=== PATIENT | female | born 1955 | race African-American/Black ===

== ENCOUNTER 2016-08-18 21:57 | Inpatient (IN) | payer SELFPAY ==
[~2016-08-18] VITALS: Ht 172.7 cm; Wt 69.1 kg
[~2016-08-18 21:57] MED LIST: METH40TA9 PO; PROM1SUP12 PR
[2016-08-18 22:21] VITALS: BP 231/110; PULSE 92; RESP 20; TEMP 97.2; O2SAT 98
--- NOTE | 2016-08-18 22:29 | PD ---
HPI Chief Complaint: Abdominal Pain Time Seen by Provider: 22:18 Travel History International Travel<30 days: No Contact w/Intl Traveler<30days: No Traveled to known affect area: No History of Present Illness HPI 60-year-old female with history of hypertension and tobacco use who presents via EMS for evaluation of chest pain, headache, nausea, vomiting. Symptoms started this morning. She describes the headache as generalized pressure. The chest pain is substernal, sharp, worse with inspiration. She endorses nausea and vomiting throughout the day as well. Denies abdominal pain, fevers or chills, flank pain, diarrhea, shortness of breath, cough or congestion. Denies known personal history of coronary artery disease however she has no outpatient follow-up. She is on no medications to help control her blood pressure. She denies any drug or alcohol use. No known history of AAA. No recent travel, recent surgery, history of PE or DVT, lower extremity edema. She received 4 mg of Zofran via EMS with minimal improvement in her nausea. She has no other complaints. 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 She does have some active vomiting. She is hypertensive. SKIN: Warm and dry. HEAD: Atraumatic. Normocephalic. EYES: Pupils equal and round. No scleral icterus. No injection or drainage. ENT: No nasal bleeding or discharge. Mucous membranes pink and moist. NECK: Trachea midline. No JVD. CARDIOVASCULAR: Regular rate and rhythm. No murmur appreciated. RESPIRATORY: No accessory muscle use. Clear to auscultation. Breath sounds equal bilaterally. No crackles no wheezing or rhonchi GASTROINTESTINAL: Abdomen soft, non-tender, nondistended. Hepatic and splenic margins not palpable. MUSCULOSKELETAL: No obvious deformities. No clubbing. No cyanosis. No edema. NEUROLOGICAL: Awake and alert. No obvious cranial nerve deficits. Motor grossly within normal limits. Normal speech. PSYCHIATRIC: Appropriate mood and affect; insight and judgment normal. Data Data Last Documented VS Vital Signs Date Time Temp Pulse Resp B/P Pulse Ox O2 Delivery O2 Flow Rate FiO2 08/19/16 04:30 82 18 194/88 95 Nasal Cannula 2 08/18/16 22:21 97.2 Orders Electrocardiogram (08/18/16 22:25) Ckmb (Isoenzyme) Profile (08/18/16 22:25) Complete Blood Count With Diff (08/18/16 22:25) Magnesium (Mg) (08/18/16 22:25) Prothrombin Time / Inr (Pt) (08/18/16 22:25) Act Partial Throm Time (Ptt) (08/18/16 22:25) Troponin I (08/18/16 22:25) Chest, Single Ap (08/18/16 22:25) Ecg Monitoring (08/18/16 22:25) Bilateral Bp Monitoring (08/18/16 22:25) Iv Access Insert/Monitor (08/18/16 22:25) Oximetry (08/18/16 22:25) Oxygen Administration (08/18/16 22:25) Sodium Chloride 0.9% Flush (Ns Flush) (08/18/16 22:30) Morphine Inj (Morphine Inj) (08/18/16 22:30) Nitroglycerin Sl (Nitrostat Sl) (08/18/16 22:30) Ct Brain W/O Iv Contrast(Rout) (08/18/16 ) Ondansetron Inj (Zofran Inj) (08/18/16 22:30) Comprehensive Metabolic Panel (08/18/16 22:25) Lipase (08/18/16 22:25) Labetalol Inj (Trandate Inj) (08/18/16 22:30) Hydromorphone Pf Inj (Dilaudid Pf Inj) (08/19/16 00:00) Cta Thor Abd Aorta W Iv C W3d (08/19/16 22:43) Iohexol 350 Inj (Omnipaque 350 Inj) (08/19/16 04:11) Clonidine (Catapres) (08/19/16 05:15) Nitroglycerin-Dextrose Inj (Nitroglyceri (08/19/16 05:15) Admit Order (Ed Use Only) (08/19/16 05:17) Metoprolol Tartrate Inj (Lopressor Inj) (08/19/16 05:15) Ciprofloxacin 400 Mg Premix (Cipro 400 M (08/19/16 06:00) Metronidazole 500 Mg Inj (Flagyl 500 Mg (08/19/16 06:00) Pantoprazole Inj (Protonix Inj) (08/19/16 05:30) Pantoprazole Inj (Protonix Inj) (08/20/16 21:00) Labs Laboratory Tests Test 08/18/16 22:35 White Blood Count 10.1 TH/MM3 Red Blood Count 6.10 MIL/MM3 Hemoglobin 14.3 GM/DL Hematocrit 43.5 % Mean Corpuscular Volume 71.3 FL Mean Corpuscular Hemoglobin 23.4 PG Mean Corpuscular Hemoglobin 32.8 % Concent Red Cell Distribution Width 16.0 % Platelet Count 316 TH/MM3 Mean Platelet Volume 8.1 FL Neutrophils (%) (Auto) 85.0 % Lymphocytes (%) (Auto) 10.8 % Monocytes (%) (Auto) 3.8 % Eosinophils (%) (Auto) 0.0 % Basophils (%) (Auto) 0.4 % Neutrophils # (Auto) 8.6 TH/MM3 Lymphocytes # (Auto) 1.1 TH/MM3 Monocytes # (Auto) 0.4 TH/MM3 Eosinophils # (Auto) 0.0 TH/MM3 Basophils # (Auto) 0.0 TH/MM3 CBC Comment DIFF FINAL Differential Comment Prothrombin Time 10.0 SEC Prothromb Time International 0.9 RATIO Ratio Activated Partial 23.1 SEC Thromboplast Time Sodium Level 141 MEQ/L Potassium Level 3.5 MEQ/L Chloride Level 107 MEQ/L Carbon Dioxide Level 20.3 MEQ/L Anion Gap 14 MEQ/L Blood Urea Nitrogen 12 MG/DL Creatinine 0.61 MG/DL Estimat Glomerular Filtration 121 ML/MIN Rate Random Glucose 120 MG/DL Calcium Level 9.1 MG/DL Magnesium Level 1.8 MG/DL Total Bilirubin 0.3 MG/DL Aspartate Amino Transf 27 U/L (AST/SGOT) Alanine Aminotransferase 30 U/L (ALT/SGPT) Alkaline Phosphatase 109 U/L Total Creatine Kinase 81 U/L Troponin I 0.04 NG/ML Total Protein 8.0 GM/DL Albumin 3.9 GM/DL Lipase 127 U/L MDM Medical Decision Making Medical Screen Exam Complete: Yes Emergency Medical Condition: Yes Medical Record Reviewed: Yes Interpretation(s) EKG sinus rhythm with first-degree AV block, VT interval 235, no acute T wave inversions or ST depression/elevation Differential Diagnosis Hypertensive emergency, acute coronary syndrome, aortic dissection, pulmonary embolism, renal failure, gastroenteritis, intracranial hemorrhage Narrative Course 60-year-old female with known history of hypertension and tobacco use presents with a one-day history of substernal sharp chest pain that is worse with inspiration, nausea and vomiting, headache. On initial examination she is quite hypertensive with systolic reading in the mid 200s. Plan is for basic lab work, 12-lead EKG, ECG monitoring pulse oximetry. CT of the brain, CT angiogram to assess for dissection, chest x-ray have been ordered. She'll be given nitroglycerin, morphine and labetalol as well as additional Zofran. 2300: At the end of my shift this patient was signed out pending lab work, imaging studies. Procedures EKG Prior to Arrival: Yes Robert Deshpande August 18, 2016 22:29
[2016-08-18] MEDS ORDERED: MORPHINE SULFATE 4 MG/ML INJ IV PUSH ONE (22:30)
[2016-08-18] MEDS ORDERED: SODIUM CHLORIDE 0.9% FLUSH 10 ML FLUSH IVF PRN (22:30)
[2016-08-18] MEDS ORDERED: ONDANSETRON HCL 4 MG/2 ML VIAL IV PUSH ONE (22:30)
[2016-08-18] MEDS ORDERED: LABETALOL HCL 100 MG/20 ML VIAL IV PUSH ONE (22:30)
[2016-08-18] MEDS: NITROGLYCERIN 0.4 MG SL 25 TABS/BTL SL SCH ×3 (22:35→22:46)
[2016-08-18 22:49] VITALS: BP_SYST 235; BP_SYST 245; BP_DIAS 110; BP_DIAS 112; PULSE 88; RESP 20; O2SAT 98
[2016-08-18 22:59] LABS: AUTOMATED NEUTROPHIL # 8.6 TH/MM3 (1.8-7.7); BASOPHIL % 0.4 % (0.0-2.0); HEMATOCRIT 43.5 % (35.0-46.0); HEMO FLAGS DIFF FINAL; LYMPH % 10.8 % (9.0-44.0); LYMPHOCYTE # 1.1 TH/MM3 (1.0-4.8); MEAN CELL VOLUME 71.3 FL (80.0-100.0); MEAN CORPUSCULAR HEMOGLOBIN 23.4 PG (27.0-34.0); MEAN CORPUSCULAR HGB CONC 32.8 % (32.0-36.0); MONO % 3.8 % (0.0-8.0); PLATELET COUNT 316 TH/MM3 (150-450); WHITE BLOOD COUNT 10.1 TH/MM3 (4.0-11.0)
--- NOTE | 2016-08-18 23:01 | RADRPT ---
EXAM DATE/TIME: 08/18/2016 22:36 [facility] COMPARISON: No previous studies available for comparison. INDICATIONS : Upper abd pain, vomiting, headache and htn MEDICAL HISTORY : Heart murmur SURGICAL HISTORY : None. ENCOUNTER: Initial ACUITY: 1 day PAIN SCORE: 7/10 LOCATION: Bilateral abdomen FINDINGS: There is mild hazy infiltrate in the left lung base, probably lingular. Right lung reasonably clear. No effusion seen. No pneumothorax. Heart size within normal limits. CONCLUSION: Early or mild left base pneumonia suspected. Sly Cage MD on August 18, 2016 at 22:59 Board Certified Radiologist. This report was verified electronically.
[2016-08-18 23:19] LABS: APTT (PATIENT) 23.1 SEC (24.3-30.1); INTERNATIONAL NORMALIZED RATIO 0.9 RATIO
[2016-08-18 23:22] LABS: ANION GAP 14 MEQ/L (5-15); AST (GOT) 27 U/L (15-37); BICARBONATE 20.3 MEQ/L (21.0-32.0); BLOOD UREA NITROGEN 12 MG/DL (7-18); CHLORIDE 107 MEQ/L (98-107); GLOMERULAR FILTRATION RATE 121 ML/MIN (>89); MAGNESIUM 1.8 MG/DL (1.5-2.5); POTASSIUM 3.5 MEQ/L (3.5-5.1); SODIUM (NA) 141 MEQ/L (136-145)
[2016-08-18 23:27] LABS: ALKALINE PHOSPHATASE 109 U/L (45-117); ALT (GPT) 30 U/L (10-53); TOTAL BILIRUBIN ADULT 0.3 MG/DL (0.2-1.0)
[2016-08-18 23:29] LABS: CREATINE KINASE 81 U/L (26-192)
[2016-08-18 23:36] VITALS: BP 196/96; PULSE 98; RESP 20; O2SAT 98
[2016-08-19] VITALS (20 sets, daily range): BP systolic 89–231; BP diastolic 53–121; PULSE 72–106; RESP 16–20; TEMP 98.3–98.7; O2SAT 95–100
[2016-08-19] MEDS ORDERED: HYDROmorphone HCL PF 1 MG/ML VIAL IV PUSH ONE
--- NOTE | 2016-08-19 00:14 | RADRPT ---
EXAM DATE/TIME: 08/19/2016 00:01 [facility] COMPARISON: No previous studies available for comparison. INDICATIONS : Cephalgia. RADIATION DOSE: 56.35 CTDIvol (mGy) MEDICAL HISTORY : None SURGICAL HISTORY : None. ENCOUNTER: Initial ACUITY: 1 day PAIN SCALE: 5/10 LOCATION: cranial TECHNIQUE: Multiple contiguous axial images were obtained of the head. Using automated exposure control and adj ustment of the mA and/or kV according to patient size, radiation dose was kept as low as reasonably a chievable to obtain optimal diagnostic quality images. FINDINGS: CEREBRUM: The ventricles are normal for age. No evidence of midline shift, mass lesion, hemorrhage or acute in farction. No extra-axial fluid collections are seen. POSTERIOR FOSSA: The cerebellum and brainstem are intact. The 4th ventricle is midline. The cerebellopontine angle i s unremarkable. EXTRACRANIAL: The visualized portion of the orbits is intact. SKULL: The calvaria is intact. No evidence of skull fracture. CONCLUSION: Normal examination. Henrry Ho MD on August 19, 2016 at 0:10 Board Certified Radiologist. This report was verified electronically.
[2016-08-19] MEDS ORDERED: IOHEXOL 350 MG/ML 10 ML VIAL (for RAD DIAG) IV ONE (04:11)
--- NOTE | 2016-08-19 05:04 | RADRPT ---
EXAM DATE/TIME: 08/19/2016 00:05 [facility] COMPARISON: No previous studies available for comparison. INDICATIONS : Abdominal pain. IV CONTRAST: 100 cc Omnipaque 350 (iohexol) IV RADIATION DOSE: 5.54 CTDIvol (mGy) MEDICAL HISTORY : Heart murmur SURGICAL HISTORY : None. ENCOUNTER: Initial ACUITY: 1 day PAIN SCALE: 8/10 LOCATION: abdomen TECHNIQUE: Volumetric scanning was performed using a multi-row detector CT scanner. The data was post processed with a variety of visualization algorithms including full volume maximum intensity projection, multi -planar sliding thin slab reformation, curved planar reformation, and surface rendering techniques. Using automated exposure control and adjustment of the mA and/or kV according to patient size, radiat ion dose was kept as low as reasonably achievable to obtain optimal diagnostic quality images. FINDINGS: LUNGS: There is no consolidation or pneumothorax. No concerning pulmonary nodule is visualized. No pleural fluid is present. MEDIASTINUM: No abnormally enlarged lymph nodes by CT criteria. No axillary or hilar abnormalities are identified. ABDOMEN: The liver and spleen are free of focal defects. The gallbladder and pancreas demonstrate no abnormali ty. The adrenal glands are normal. The kidneys demonstrate no evidence of solid renal mass or hydrone phrosis. No free fluid or abdominal masses are identified. No para-aortic adenopathy is seen. Mild mu ral thickening of the colon. PELVIS: No evidence of free fluid or pelvic mass. No abnormally enlarged inguinal or retroperitoneal lymph no laura are present. The bladder is unremarkable. THORACIC AORTA: The thoracic aortic root is normal with normal branching of the great vessels. There is no evidence of aneurysm or dissection. ABDOMINAL AORTA: The aorta is normal in caliber without aneurysm or dissection. The renal arteries are patent bilater ally. The proximal celiac and superior mesenteric arteries are patent and normal in diameter. PELVIC VESSELS: The internal iliac and external iliac vessels are patent without aneurysm or stenosis. CONCLUSION: 1. Negative CTA of the aorta, except for mild atherosclerotic disease. Specifically no aneurysm or di ssection. Small hiatal hernia. 2. There is some mild mural thickening of the colon with minimal pericolonic fat stranding near the s plenic flexure are most characteristic of a mild colitis. Henrry Ho MD on August 19, 2016 at 4:54 Board Certified Radiologist. This report was verified electronically.
[2016-08-19] MEDS ORDERED: cloNIDine HCL 0.2 MG TAB PO ONE (05:15)
[2016-08-19] MEDS ORDERED: METOPROLOL TARTRATE 5 MG/5 ML VIAL IV PUSH ONE (05:15)
--- NOTE | 2016-08-19 05:22 | PD ---
Physical Exam Date Seen by Provider: August 18, 2016 Time Seen by Provider: 23:00 Narrative I, Dr. Freitas, have reviewed the advance practice practitioner's documentation and am in agreement, met with the patient face to face, made the diagnosis, and the medical decision making was done by me. *My assessment and Findings: Patient seen and evaluated with PA, please see PA no further details. Awaiting workup for substernal and epigastric abdominal pains, elevated blood pressures. EKG shows NSR, no ST elevation or depression, and no arrhythmias. No significant T-wave inversions. Laboratory Tests Test 08/18/16 22:35 Red Blood Count 6.10 MIL/MM3 (4.00-5.30) Mean Corpuscular Volume 71.3 FL (80.0-100.0) Mean Corpuscular Hemoglobin 23.4 PG (27.0-34.0) Neutrophils (%) (Auto) 85.0 % (16.0-70.0) Neutrophils # (Auto) 8.6 TH/MM3 (1.8-7.7) Activated Partial 23.1 SEC Thromboplast Time (24.3-30.1) Carbon Dioxide Level 20.3 MEQ/L (21.0-32.0) Random Glucose 120 MG/DL (74-106) Last 24 hours Impressions Aorta CTA 08/19/16 2243 Signed Impressions: Service Date/Time: Friday, August 19, 2016 00:05 - CONCLUSION: 1. Negative CTA of the aorta, except for mild atherosclerotic disease. Specifically no aneurysm or dissection. Small hiatal hernia. 2. There is some mild mural thickening of the colon with minimal pericolonic fat stranding near the splenic flexure are most characteristic of a mild colitis. Henrry Ho MD Chest X-Ray 08/18/16 2225 Signed Impressions: Service Date/Time: Thursday, August 18, 2016 22:36 - CONCLUSION: Early or mild left base pneumonia suspected. Sly Cage MD Head CT 08/18/16 0000 Signed Impressions: Service Date/Time: Friday, August 19, 2016 00:01 - CONCLUSION: Normal examination. Henrry Ho MD CT of the brain did not reveal any signs of acute processes. Lab work did not show significant metabolic issues. Her EKG did not show any signs of acute ST- T elevations. She has a negative troponin. She was given labetalol, nitroglycerin glycerin, pain medications in the ER. She states that she has had a similar episode and had been admitted to another facility, and had to be given multiple pain medication in order to help with blood pressure. She states that some of the blood pressure issues is mediated by pain. She was given several doses of pain medications as well but without significant blood pressure improvements. At this point, my plan would be to admit her for hypertensive urgency for further treatment. Case was discussed with Dr. Drew for admission. Data Data Last Documented VS Vital Signs Date Time Temp Pulse Resp B/P Pulse Ox O2 Delivery O2 Flow Rate FiO2 08/19/16 00:30 20 08/18/16 23:36 98 196/96 98 Room Air 08/18/16 22:21 97.2 Orders Electrocardiogram (08/18/16 22:25) Ckmb (Isoenzyme) Profile (08/18/16 22:25) Complete Blood Count With Diff (08/18/16 22:25) Magnesium (Mg) (08/18/16 22:25) Prothrombin Time / Inr (Pt) (08/18/16 22:25) Act Partial Throm Time (Ptt) (08/18/16 22:25) Troponin I (08/18/16 22:25) Chest, Single Ap (08/18/16 22:25) Ecg Monitoring (08/18/16 22:25) Bilateral Bp Monitoring (08/18/16 22:25) Iv Access Insert/Monitor (08/18/16 22:25) Oximetry (08/18/16 22:25) Oxygen Administration (08/18/16 22:25) Sodium Chloride 0.9% Flush (Ns Flush) (08/18/16 22:30) Morphine Inj (Morphine Inj) (08/18/16 22:30) Nitroglycerin Sl (Nitrostat Sl) (08/18/16 22:30) Ct Brain W/O Iv Contrast(Rout) (08/18/16 ) Ondansetron Inj (Zofran Inj) (08/18/16 22:30) Comprehensive Metabolic Panel (08/18/16 22:25) Lipase (08/18/16 22:25) Labetalol Inj (Trandate Inj) (08/18/16 22:30) Hydromorphone Pf Inj (Dilaudid Pf Inj) (08/19/16 00:00) Cta Thor Abd Aorta W Iv C W3d (08/19/16 22:43) Iohexol 350 Inj (Omnipaque 350 Inj) (08/19/16 04:11) Clonidine (Catapres) (08/19/16 05:15) Nitroglycerin-Dextrose Inj (Nitroglyceri (08/19/16 05:15) Admit Order (Ed Use Only) (08/19/16 05:17) Metoprolol Tartrate Inj (Lopressor Inj) (08/19/16 05:15) Labs Laboratory Tests Test 08/18/16 22:35 White Blood Count 10.1 TH/MM3 Red Blood Count 6.10 MIL/MM3 Hemoglobin 14.3 GM/DL Hematocrit 43.5 % Mean Corpuscular Volume 71.3 FL Mean Corpuscular Hemoglobin 23.4 PG Mean Corpuscular Hemoglobin 32.8 % Concent Red Cell Distribution Width 16.0 % Platelet Count 316 TH/MM3 Mean Platelet Volume 8.1 FL Neutrophils (%) (Auto) 85.0 % Lymphocytes (%) (Auto) 10.8 % Monocytes (%) (Auto) 3.8 % Eosinophils (%) (Auto) 0.0 % Basophils (%) (Auto) 0.4 % Neutrophils # (Auto) 8.6 TH/MM3 Lymphocytes # (Auto) 1.1 TH/MM3 Monocytes # (Auto) 0.4 TH/MM3 Eosinophils # (Auto) 0.0 TH/MM3 Basophils # (Auto) 0.0 TH/MM3 CBC Comment DIFF FINAL Differential Comment Prothrombin Time 10.0 SEC Prothromb Time International 0.9 RATIO Ratio Activated Partial 23.1 SEC Thromboplast Time Sodium Level 141 MEQ/L Potassium Level 3.5 MEQ/L Chloride Level 107 MEQ/L Carbon Dioxide Level 20.3 MEQ/L Anion Gap 14 MEQ/L Blood Urea Nitrogen 12 MG/DL Creatinine 0.61 MG/DL Estimat Glomerular Filtration 121 ML/MIN Rate Random Glucose 120 MG/DL Calcium Level 9.1 MG/DL Magnesium Level 1.8 MG/DL Total Bilirubin 0.3 MG/DL Aspartate Amino Transf 27 U/L (AST/SGOT) Alanine Aminotransferase 30 U/L (ALT/SGPT) Alkaline Phosphatase 109 U/L Total Creatine Kinase 81 U/L Troponin I 0.04 NG/ML Total Protein 8.0 GM/DL Albumin 3.9 GM/DL Lipase 127 U/L MDM Medical Record Reviewed: Yes Supervised Visit with DAVID: Yes Differential Diagnosis Hypertensive urgency versus hypertensive urgency versus ACS versus AAA versus aortic dissection Diagnosis Primary Impression: Hypertensive urgency Admitting Information Admitting Physician Requests: Joey Bianchi MD August 19, 2016 05:22
[2016-08-19] MEDS: CIPROFLOXACIN 400 MG PREMIX 200 ML IV SCH ×2 (05:26→09:12)
[2016-08-19] MEDS ORDERED: SODIUM CHLORIDE 0.9% FLUSH 10 ML FLUSH IV FLUSH PRN (05:30)
[2016-08-19] MEDS ORDERED: BISACODYL 10 MG SUPP RECTAL PRN (05:30)
[2016-08-19] MEDS ORDERED: PANTOPRAZOLE SODIUM 40 MG VIAL IV PUSH ONE (05:30)
--- NOTE | 2016-08-19 05:39 | HHI.HP ---
[facility] Service [facility] Primary Care Physician No Primary Care Physician Admission Diagnosis hypertensive urgency Diagnoses: (1) Hypertensive urgency Diagnosis: Principal (2) Intractable nausea and vomiting Diagnosis: Principal (3) Colitis Diagnosis: Principal (4) Chest pain Diagnosis: Principal (5) Non-compliance Diagnosis: Principal (6) Substance abuse Diagnosis: Principal (7) Tobacco abuse Diagnosis: Principal Travel History International Travel<30 Days: No Contact w/Intl Traveler <30 Da: No Traveled to Known Affected Are: No History of Present Illness This is a 60-year-old female with a PMH of HTN, Noncompliance, h/o Substance Abuse and Tobacco Abuse who was brought here by EMS secondary to complaints of chest pain, abdominal pain, headache and nausea/vomiting started yesterday morning. Denies fever, chills or sick contacts. No c/o SOB. On arrival, BP 231/110, HR 92, O2 sat 98% on RA, Afebrile. S/p Labetalol 20mg IV in ER w/ repeat BP 196/96, HR 98. Given analgesics/antiemetics w/ some improvement in pain complaints. CBC essentially unremarkable. Chemistry unremarkable. Troponin 0.04. INR 0.9. CT Head normal. CXR with early or mild base pneumonia. CTA Aorta negative, mild mural thickening of colon suggestive of mild colitis. While in ER, BP remains 190's w/ persistent nausea/vomiting. Pt reports non-compliance w/ BP medications. Review of Systems Except as stated in HPI: all other systems reviewed are Neg ROS: 14 point review of systems otherwise negative. Past Family Social History Past Medical History PMH: HTN, Noncompliance, h/o Substance Abuse and Tobacco Abuse Past Surgical History PAST SURGICAL HISTORY: None Allergies: Coded Allergies: No Known Allergies (Verified , 08/18/16) Family History PAST FAMILY HISTORY: Reviewed. No h/o DM or CAD Social History PAST SOCIAL HISTORY: Occasional alcohol. Smokes 1ppd. H/o Substance Abuse, currently on Methadone. Physical Exam Vital Signs Vital Signs Date Time Temp Pulse Resp B/P Pulse Ox O2 Delivery O2 Flow Rate FiO2 08/19/16 00:30 20 5/19/17 23:36 98 20 196/96 98 Room Air 08/18/16 23:23 20 08/18/16 22:49 88 20 235/110 98 Room Air 245/112 08/18/16 22:49 20 08/18/16 22:48 Room Air 08/18/16 22:21 97.2 92 20 231/110 98 Physical Exam PE: GENERAL: Middle-aged black female in no acute distress. HEENT: PERRLA, EOMI. No scleral icterus or conjunctival pallor. No lid lag or facial droop. CARDIOVASCULAR: Regular rate and rhythm. No obvious murmurs to auscultation. No chest tenderness to palpation. RESPIRATORY: No obvious rhonchi or wheezing. Clear to auscultation. Breath sounds equal bilaterally. GASTROINTESTINAL: Abdomen soft, mild generalized tenderness to palpation, nondistended. BS normal. MUSCULOSKELETAL: Extremities without clubbing, cyanosis, or edema. No obvious deformities. NEUROLOGICAL: Awake, alert and oriented x4. No focal neurologic deficits. Moving both upper and lower extremities spontaneously. Laboratory Laboratory Tests Test 08/18/16 22:35 White Blood Count 10.1 Red Blood Count 6.10 Hemoglobin 14.3 Hematocrit 43.5 Mean Corpuscular Volume 71.3 Mean Corpuscular Hemoglobin 23.4 Mean Corpuscular Hemoglobin 32.8 Concent Red Cell Distribution Width 16.0 Platelet Count 316 Mean Platelet Volume 8.1 Neutrophils (%) (Auto) 85.0 Lymphocytes (%) (Auto) 10.8 Monocytes (%) (Auto) 3.8 Eosinophils (%) (Auto) 0.0 Basophils (%) (Auto) 0.4 Neutrophils # (Auto) 8.6 Lymphocytes # (Auto) 1.1 Monocytes # (Auto) 0.4 Eosinophils # (Auto) 0.0 Basophils # (Auto) 0.0 CBC Comment DIFF FINAL Differential Comment Prothrombin Time 10.0 Prothromb Time International 0.9 Ratio Activated Partial 23.1 Thromboplast Time Sodium Level 141 Potassium Level 3.5 Chloride Level 107 Carbon Dioxide Level 20.3 Anion Gap 14 Blood Urea Nitrogen 12 Creatinine 0.61 Estimat Glomerular Filtration 121 Rate Random Glucose 120 Calcium Level 9.1 Magnesium Level 1.8 Total Bilirubin 0.3 Aspartate Amino Transf 27 (AST/SGOT) Alanine Aminotransferase 30 (ALT/SGPT) Alkaline Phosphatase 109 Total Creatine Kinase 81 Troponin I 0.04 Total Protein 8.0 Albumin 3.9 Lipase 127 Result Diagram: 08/18/16223408/18/162234 Assessment and Plan Problem List: (1) Hypertensive urgency ICD Code: I16.0 Status: Acute (2) Intractable nausea and vomiting ICD Code: R11.2 Status: Acute (3) Colitis ICD Code: K52.9 Status: Acute (4) Chest pain ICD Code: R07.9 Status: Acute (5) Non-compliance ICD Code: Z91.19 Status: Acute (6) Substance abuse ICD Code: F19.10 Status: Acute (7) Tobacco abuse ICD Code: Z72.0 Status: Acute Assessment and Plan A/P: 1. Hypertensive Urgency: h/o HTN, Non-compliant w/ medications. On arrival, BP 230's systolic, s/p Labetalol 20mg IV x1 in ER, repeat BP 190's-likely compounded by c/o abdominal pain and persistent nausea/vomiting. Lopressor IV x1 now, monitor BP, if no improvement, may require Cardene gtt. Headache likely secondary to elevated BP, CT Head w/ no acute findings, images reviewed by me. 2. Intractable N/V: w/ associated abdominal pain, no diarrhea. IVF, Protonix IV, analgesics/antiemetics as needed. 3. Colitis: CTA Aorta w/ mild colitis, images reviewed by me, in light of persistent symptoms and elevated neutrophil count will start on Cipro/Flagyl. IVF for hydration. 4. Chest Pain: Likely secondary to GI etiology from persistent vomiting. CXR w/ no acute findings, possible mild infiltrate, however pt asymptomatic, images reviewed by me. CTA Aorta negative for aneurysm or dissection. Initial trop 0.04, EKG w/ no acute changes. Monitor, place on telemetry, check serial enzymes, pain control. 5. Non-Compliance: Known h/o HTN, not on antihypertensives, non-compliant w/ meds and follow up. Pt counselled. 6. Substance Abuse: h/o substance abuse, currently on Methadone. 7. Tobacco Abuse: Counselled. Ativan/NicoDerm prn if needed. 8. DVT Prophylaxis: SCD/Teds. 9. Social work for d/c planning as needed. 10. Case discussed w/ ER physician at length. Physician Certification 2 Midnight Certification Type: Admission for Inpatient Services Order for Inpatient Services The services are ordered in accordance with Medicare regulations or non- Medicare payer requirements, as applicable. In the case of services not specified as inpatient-only, they are appropriately provided as inpatient services in accordance with the 2-midnight benchmark. Estimated LOS (days): 2 days is the estimated time the patient will need to remain in the hospital, assuming treatment plan goals are met and no additional complications. Post-Hospital Plan: Not yet determined Nelda Drew MD August 19, 2016 05:39
[2016-08-19] MEDS: SODIUM CHLOR 0.9% 1000 ML INJ 1,000 ML IV SCH ×2 (05:47→09:13)
[2016-08-19] MEDS: metroNIDAZOLE 500 MG INJ 100 ML IV SCH ×3 (05:47→21:51)
[2016-08-19] MEDS: NITROGLYCERIN-DEXTROSE INJ 250 ML IV SCH ×3 (05:48→20:22)
[2016-08-19 07:11] LABS: AUTOMATED NEUTROPHIL # 9.4 TH/MM3 (1.8-7.7); BASOPHIL % 0.2 % (0.0-2.0); EOSINOPHIL % 0.3 % (0.0-4.0); HEMATOCRIT 44.7 % (35.0-46.0); HEMO FLAGS DIFF FINAL; LYMPH % 10.4 % (9.0-44.0); LYMPHOCYTE # 1.2 TH/MM3 (1.0-4.8); MEAN CELL VOLUME 70.7 FL (80.0-100.0); MEAN CORPUSCULAR HEMOGLOBIN 23.3 PG (27.0-34.0); NEUT % 84.1 % (16.0-70.0); PLATELET COUNT 338 TH/MM3 (150-450); RED BLOOD COUNT 6.32 MIL/MM3 (4.00-5.30); RED CELL DISTRIBUTION WIDTH 16.1 % (11.6-17.2); WHITE BLOOD COUNT 11.1 TH/MM3 (4.0-11.0)
[2016-08-19] MEDS: MORPHINE SULFATE 4 MG/ML INJ IV PRN ×5 (07:25→21:52)
[2016-08-19 07:39] LABS: ALKALINE PHOSPHATASE 119 U/L (45-117); ALT (GPT) 30 U/L (10-53); ANION GAP 14 MEQ/L (5-15); AST (GOT) 20 U/L (15-37); BICARBONATE 22.2 MEQ/L (21.0-32.0); BLOOD UREA NITROGEN 13 MG/DL (7-18); CHLORIDE 103 MEQ/L (98-107); GLOMERULAR FILTRATION RATE 90 ML/MIN (>89); POTASSIUM 3.5 MEQ/L (3.5-5.1); SODIUM (NA) 139 MEQ/L (136-145); TOTAL BILIRUBIN ADULT 0.4 MG/DL (0.2-1.0)
--- NOTE | 2016-08-19 07:45 | HHI.PR ---
Subjective Remarks f/u headache and abdominal pain Headache still present but better, BP a little better, still mildly nauseated. Abdominal pain mostly epigastric started this morning is also better, no diarrhea. Patient denies any chest pain, more of epigastric pain. Objective Vitals Vital Signs Date Time Temp Pulse Resp B/P Pulse Ox O2 Delivery O2 Flow Rate FiO2 08/19/16 07:14 91 18 185/88 95 Nasal Cannula 2 08/19/16 05:30 75 18 226/109 95 Nasal Cannula 2 08/19/16 04:30 82 18 194/88 95 Nasal Cannula 2 08/19/16 03:30 77 18 215/107 95 Nasal Cannula 2 08/19/16 02:30 74 18 228/99 95 Nasal Cannula 2 08/19/16 01:55 86 18 231/117 95 Nasal Cannula 2 08/19/16 00:30 20 08/18/16 23:36 98 20 196/96 98 Room Air 08/18/16 23:23 20 08/18/16 22:49 88 20 235/110 98 Room Air 245/112 08/18/16 22:49 20 08/18/16 22:48 Room Air 08/18/16 22:21 97.2 92 20 231/110 98 Result Diagram: 08/19/16 0647 08/18/162234 Objective Remarks GENERAL: Middle-aged black female in no acute distress. HEENT: PERRLA, EOMI. No scleral icterus or conjunctival pallor. No lid lag or facial droop. CARDIOVASCULAR: Regular rate and rhythm. No obvious murmurs to auscultation. No chest tenderness to palpation. RESPIRATORY: No obvious rhonchi or wheezing. Clear to auscultation. Breath sounds equal bilaterally. GASTROINTESTINAL: Abdomen soft, mild generalized tenderness to palpation, mostly in the epigastric area, nondistended. BS normal. MUSCULOSKELETAL: Extremities without clubbing, cyanosis, or edema. No obvious deformities. NEUROLOGICAL: Awake, alert and oriented x4. No focal neurologic deficits. Moving both upper and lower extremities spontaneously. A/P Problem List: (1) Hypertensive urgency ICD Code: I16.0 Status: Acute (2) Intractable nausea and vomiting ICD Code: R11.2 Status: Acute (3) Colitis ICD Code: K52.9 Status: Acute (4) Chest pain ICD Code: R07.9 Status: Acute (5) Non-compliance ICD Code: Z91.19 Status: Acute (6) Substance abuse ICD Code: F19.10 Status: Acute (7) Tobacco abuse ICD Code: Z72.0 Status: Acute Assessment and Plan This is a 60-year-old female with previous history of substance abuse and noncompliance admitted for headache, abdominal pain and nausea. Hypertensive emergency-h/o HTN, Non-compliant w/ medications. Headache likely secondary to hypertensive emergency On arrival, BP 230's systolic, s/p Labetalol 20mg IV x1 in ER, repeat BP 190's-likely compounded by c/o abdominal pain and persistent nausea/vomiting. Blood pressure better, presently on nitro drip. CT Head w/ no acute findings. Start lisinopril and metoprolol. Colitis-no diarrhea, unlikely gastritis, only started this morning.CTA Aorta w/ mild colitis, images reviewed by me, in light of persistent symptoms and elevated neutrophil count will start on Cipro/Flagyl. IVF for hydration. Full liquid diet. Recheck BMP and CBC tomorrow. Chest Pain: Likely secondary to GI etiology from persistent vomiting. CXR w/ no acute findings, possible mild infiltrate, CTA Aorta negative for aneurysm or dissection. Initial trop 0.04, EKG w/ no acute changes. Monitor, place on telemetry, check serial enzymes, pain control. Follow-up next troponin Non-Compliance: Known h/o HTN, not on antihypertensives, non-compliant w/ meds and follow up. Pt counselled. Substance Abuse: h/o substance abuse, currently on Methadone. Tobacco Abuse: Counselled. Ativan/NicoDerm prn if needed. DVT Prophylaxis: SCD/Teds. Discharge Planning Discharge to home when medically ready. Sally Rea MD August 19, 2016 07:45
[2016-08-19] MEDS: SODIUM CHLORIDE 0.9% FLUSH 10 ML FLUSH IV FLUSH SCH ×2 (09:00→21:51)
[2016-08-19] MEDS: METOPROLOL TARTRATE 25 MG TAB PO SCH ×2 (09:15→21:52)
[2016-08-19] MEDS: LISINOPRIL 20 MG TAB PO SCH (09:15)
[2016-08-19] MEDS: ENALAPRILAT 1.25 MG/ML VIAL IV PUSH PRN (09:27)
[2016-08-19] MEDS ORDERED: amLODIPine BESYLATE 5 MG TAB PO SCH (13:42)
[2016-08-19] MEDS: DEXTROSE 5% IN WATE 1000ML INJ 1,000 ML IV SCH (14:05)
[2016-08-19] MEDS: LABETALOL HCL 100 MG/20 ML VIAL IV PUSH PRN (14:05)
--- NOTE | 2016-08-19 16:10 | EKG ---
Date Performed: 08/18/2016 Time Performed: 22:38:08 PTAGE: 60 years EKG: Sinus rhythm WITH FIRST DEGREE AV BLOCK RIGHT ATRIAL ENLARGEMENT POSSIBLE LEFT ATRIAL ENLARGEMENT SEPTAL MYOCARDI AL INFARCTION ABNORMAL ECG PREVIOUS TRACING : 06/06/2005 06.39 Compared to prior tracing no significant change DOCTOR: Maria Luz Mercer Interpretating Date/Time 08/19/2016 16:09:16
[2016-08-19] MEDS: ONDANSETRON HCL 4 MG/2 ML VIAL IVP PRN (16:50)
[2016-08-19 21:32] LABS: HEMATOCRIT 43.7 % (35.0-46.0); MEAN CELL VOLUME 70.6 FL (80.0-100.0); MEAN CORPUSCULAR HEMOGLOBIN 22.5 PG (27.0-34.0); MEAN CORPUSCULAR HGB CONC 31.8 % (32.0-36.0); PLATELET COUNT 314 TH/MM3 (150-450); RED BLOOD COUNT 6.19 MIL/MM3 (4.00-5.30); RED CELL DISTRIBUTION WIDTH 15.7 % (11.6-17.2); REVIEW FLAG FINAL
[2016-08-19 21:44] LABS: APTT (PATIENT) 24.7 SEC (24.3-30.1); INTERNATIONAL NORMALIZED RATIO 0.9 RATIO; PROTHROMBIN TIME - PATIENT 10.3 SEC (9.8-11.6)
[2016-08-19] MEDS: HEPARIN-D5W INJ 250 ML IV SCH (21:48)
[2016-08-19 21:59] LABS: BICARBONATE 24.9 MEQ/L (21.0-32.0); POTASSIUM 3.3 MEQ/L (3.5-5.1)
[2016-08-20] VITALS (30 sets, daily range): BP systolic 95–213; BP diastolic 52–115; PULSE 64–90; RESP 16–20; TEMP 98.4–99.4; O2SAT 98–100
[2016-08-20] MEDS: ONDANSETRON HCL 4 MG/2 ML VIAL IVP PRN ×3 (00:38→17:42)
[2016-08-20] MEDS: MORPHINE SULFATE 4 MG/ML INJ IV PRN ×5 (00:39→21:35)
[2016-08-20] MEDS ORDERED: POTASSIUM CHLORIDE 10 MEQ CONTROLLED RELEASE TAB PO ONE (03:00)
[2016-08-20] MEDS: CIPROFLOXACIN 400 MG PREMIX 200 ML IV SCH ×2 (05:08→19:02)
[2016-08-20] MEDS: metroNIDAZOLE 500 MG INJ 100 ML IV SCH ×3 (05:08→21:34)
[2016-08-20] MEDS ORDERED: SODIUM CHLORID 0.9% 500 ML INJ 500 ML IV ONE (05:15)
[2016-08-20 06:20] LABS: AUTOMATED NEUTROPHIL # 9.3 TH/MM3 (1.8-7.7); BASOPHIL # 0.1 TH/MM3 (0-0.2); BASOPHIL % 0.5 % (0.0-2.0); HEMATOCRIT 38.8 % (35.0-46.0); HEMO FLAGS DIFF FINAL; LYMPH % 24.6 % (9.0-44.0); LYMPHOCYTE # 3.4 TH/MM3 (1.0-4.8); MEAN CELL VOLUME 71.4 FL (80.0-100.0); MEAN CORPUSCULAR HEMOGLOBIN 22.6 PG (27.0-34.0); MEAN CORPUSCULAR HGB CONC 31.7 % (32.0-36.0); MONO % 6.6 % (0.0-8.0); NEUT % 68.3 % (16.0-70.0); PLATELET COUNT 274 TH/MM3 (150-450); RED BLOOD COUNT 5.43 MIL/MM3 (4.00-5.30); WHITE BLOOD COUNT 13.7 TH/MM3 (4.0-11.0)
[2016-08-20] MEDS: LISINOPRIL 20 MG TAB PO SCH ×3 (09:00→21:00)
--- NOTE | 2016-08-20 09:42 | MB ---
cc: TERESA REYNOSO MD DATE OF CONSULTATION: 08/20/2016 REASON FOR CONSULTATION Elevated troponin and chest pain. HISTORY OF PRESENT ILLNESS Ms. Nicholas is a 60-year-old female who does have a history of hypertension. She presented to the hospital with complaints of abdominal pain. She was found to be quite hypertensive with systolic in the 240s. The patient has been managed aggressively with p.o. and IV meds. She subsequently began complaining of chest pain and troponins were obtained. The troponins were mildly elevated and cardiology was subsequently consulted. The patient reports that she had intermittent episodes of chest pain for several days now. There is no precipitating factors. It does appear to be made better with breathing. The patient reports that she has had this in the past. She was seen at [facility] two years ago and it was felt to be secondary to her uncontrolled hypertension. She notes that she is not able to afford any insurance and thus, she is not taking any of her blood pressure pills. She does not follow a cardiac diet. PAST MEDICAL HISTORY Significant for: 1. Intractable nausea, vomiting. 2. Colitis. 3. Substance abuse. 4. Tobacco abuse. 5. Hypertension. ALLERGIES NO KNOWN DRUG ALLERGIES. OUTPATIENT MEDICATIONS Methadone. FAMILY HISTORY Negative for DM or CAD. SOCIAL HISTORY The patient does continue to smoke one pack a day. She does have a history of substance abuse and currently on methoadone. PHYSICAL EXAMINATION VITAL SIGNS: On physical examination her initial blood pressure was 245/112. This morning it is 95/60. Respiratory rate is 16. Pulse is 74. GENERAL: In general she is a thin female who is in no apparent distress. NECK: Her neck is free from JVD. LUNGS: The lungs are bilaterally decreased and clear to auscultation. CARDIOVASCULAR: She has a normal S1 and S2. Did not appreciate any murmurs, rubs or gallops. ABDOMEN: The abdomen is soft. EXTREMITIES: Free from edema. LAB VALUES Show this morning a potassium of 3.3 and troponin of 0.08. IMPRESSION Hypertensive crisis - the patient's blood pressure was systolic in excess of 200. This morning it is quite low after medications. I had a long discussion with her about the importance of both the low salt diet and continuing her medicines as an outpatient. I did give her a 500 mL fluid bolus. At this point her a.m. BP meds will be held. Elevated troponin - this is most likely secondary to her hypertensive crisis. Nonetheless, given this and the chest pain once she is stabilized, I would like to check a stress test for ischemia. Elevated white count - this is being managed by the primary team with antibiotics. Disposition - if the patient's stress test is nonischemic, it is reasonable for her to be discharged. Smoking - the patient was counseled to quit. Teresa Reynoso M.D. ANISHA/TLL /9:17 AM /9:28 AM
[2016-08-20] MEDS: SODIUM CHLORIDE 0.9% FLUSH 10 ML FLUSH IV FLUSH SCH ×2 (11:34→21:35)
[2016-08-20] MEDS: METOPROLOL TARTRATE 25 MG TAB PO SCH ×3 (11:34→22:00)
[2016-08-20 12:48] LABS: APTT (PATIENT) 34.3 SEC (24.3-30.1)
[2016-08-20] MEDS: DEXTROSE 5% IN WATE 1000ML INJ 1,000 ML IV SCH (13:34)
[2016-08-20] MEDS: ACETAMINOPHEN 325 MG TAB PO PRN (13:46)
--- NOTE | 2016-08-20 16:41 | HHI.PR ---
Subjective Remarks fu hypertensive urgency, diarrhea, colitis Patient denies further diarrhea denies headache feels much better states feel hungry and wants her diet advanced tolerated full liquid diet Objective Vitals Vital Signs Date Time Temp Pulse Resp B/P Pulse Ox O2 Delivery O2 Flow Rate FiO2 08/20/16 14:00 66 08/20/16 13:47 102/73 08/20/16 13:00 64 08/20/16 12:00 72 08/20/16 12:00 98.4 70 16 96/52 99 08/20/16 11:00 73 08/20/16 10:00 68 08/20/16 09:00 70 08/20/16 08:00 76 08/20/16 07:38 16 08/20/16 07:30 72 08/20/16 07:26 98.7 74 16 95/60 100 08/20/16 06:00 73 08/20/16 05:00 77 08/20/16 04:00 77 08/20/16 03:00 78 08/20/16 03:00 98.5 75 20 123/80 99 08/20/16 02:00 85 08/20/16 01:00 88 08/20/16 00:00 90 08/19/16 23:00 98.4 100 16 89/53 97 08/19/16 23:00 106 08/19/16 22:00 104 08/19/16 21:00 96 08/19/16 20:00 94 08/19/16 19:30 98.7 88 16 165/99 99 08/19/16 19:00 106 08/19/16 17:24 98.4 99 16 142/104 97 08/19/16 16:55 16 I/O 08/19/16 08/19/16 08/19/16 08/20/16 08/20/16 08/20/16 07:00 15:00 23:00 07:00 15:00 23:00 Intake Total 406 ml 1000 ml Output Total 0 ml 300 ml Balance 406 ml 700 ml Intake Oral 120 ml 120 ml IV Total 286 ml 880 ml Output Urine Total 300 ml Stool Total 0 ml # Voids 1 # Bowel Movements 0 Result Diagram: 08/20/16 0604 08/19/162126 Imaging Last Impressions Aorta CTA 08/19/162242 Signed Impressions: Service Date/Time: Friday, August 19, 2016 00:05 - CONCLUSION: 1. Negative CTA of the aorta, except for mild atherosclerotic disease. Specifically no aneurysm or dissection. Small hiatal hernia. 2. There is some mild mural thickening of the colon with minimal pericolonic fat stranding near the splenic flexure are most characteristic of a mild colitis. Henrry Ho MD Chest X-Ray 08/18/16 2225 Signed Impressions: Service Date/Time: Thursday, August 18, 2016 22:36 - CONCLUSION: Early or mild left base pneumonia suspected. Sly Cage MD Head CT 08/18/16 0000 Signed Impressions: Service Date/Time: Friday, August 19, 2016 00:01 - CONCLUSION: Normal examination. Henrry Ho MD Objective Remarks GENERAL: Middle-aged black female in no acute distress. HEENT: PERRLA, EOMI. No scleral icterus or conjunctival pallor. No lid lag or facial droop. CARDIOVASCULAR: Regular rate and rhythm. No obvious murmurs to auscultation. No chest tenderness to palpation. RESPIRATORY: No obvious rhonchi or wheezing. Clear to auscultation. Breath sounds equal bilaterally. GASTROINTESTINAL: Abdomen soft, mild tenderness to palpation over left flank and LLQ, mild pain in epigastric region as well, nondistended. BS normal. MUSCULOSKELETAL: Extremities without clubbing, cyanosis, or edema. No obvious deformities. NEUROLOGICAL: Awake, alert and oriented x4. No focal neurologic deficits. Moving both upper and lower extremities spontaneously. Medications and IVs Current Medications Medications (Trade) Dose Ordered Sig/Kimberley Route Start Time Stop Time Status Last Admin Nitroglycerin/ Dextrose 250 ml @ 0 mls/hr TITRATE IV 08/19/16 05:15 08/19/16 20:22 Ciprofloxacin/ Dextrose 200 ml @ 200 mls/hr Q12H IV 08/19/16 06:00 08/20/16 05:08 (Flagyl 500 Mg Inj) 100 ml @ 100 mls/hr Q8HR IV 08/19/16 06:00 08/20/16 13:45 (Protonix Inj) 40 mg Q12HR IV PUSH 08/20/16 21:00 (NS Flush) 2 ml UNSCH PRN IV FLUSH 08/19/16 05:30 (NS Flush) 2 ml BID IV FLUSH 08/19/16 09:00 08/20/16 11:34 (Zofran Inj) 4 mg Q6H PRN IVP 08/19/16 05:30 08/20/16 07:34 (Dulcolax Supp) 10 mg DAILY PRN RECTAL 08/19/16 05:30 (Tylenol) 650 mg Q6H PRN PO 08/19/16 05:30 08/20/16 13:46 (Morphine Inj) 2 mg Q3H PRN IV 08/19/16 05:30 08/20/16 07:33 (Morphine Inj) 4 mg Q3H PRN IV 08/19/16 05:30 08/20/16 03:29 (Prinivil) 40 mg DAILY PO 08/19/16 08:00 08/19/16 09:15 (Lopressor) 25 mg Q12HR PO 08/19/16 09:00 08/20/16 11:34 (Vasotec Inj) 1.25 mg Q6H PRN IV PUSH 08/19/16 09:15 08/19/16 09:27 Labetalol HCl 10 mg 10 mg Q4H PRN IV PUSH 08/19/16 13:45 08/19/16 14:05 Dextrose 1,000 ml @ 42 mls/hr [id number] IV 08/19/16 13:45 08/19/16 14:05 (Heparin-D5W Inj) 250 ml @ 0 mls/hr TITRATE IV 08/19/16 21:15 08/19/16 21:48 (Pneumovax-23 Inj) 25 mcg ONCE ONCE IM 08/21/16 10:00 08/21/16 10:01 Urinary Catheter: No Vascular Central Line Catheter: No A/P Problem List: (1) Hypertensive urgency ICD Code: I16.0 Status: Resolved (2) Intractable nausea and vomiting ICD Code: R11.2 Status: Resolved (3) Colitis ICD Code: K52.9 Status: Acute (4) Chest pain ICD Code: R07.9 Status: Acute (5) Non-compliance ICD Code: Z91.19 Status: Acute (6) Substance abuse ICD Code: F19.10 Status: Acute (7) Tobacco abuse ICD Code: Z72.0 Status: Acute (8) Diarrhea ICD Code: R19.7 Status: Acute (9) Leukocytosis ICD Code: D72.829 Status: Acute Assessment and Plan This is a 60-year-old female with previous history of substance abuse and noncompliance admitted for headache, abdominal pain and nausea, vomiting and diarrhea. Hypertensive emergency-h/o HTN, Non-compliant w/ medications. Headache likely secondary to hypertensive emergency On arrival, BP 230's systolic, s/p Labetalol 20mg IV x1 in ER, repeat BP 190's-likely compounded by c/o abdominal pain and persistent nausea/vomiting. Blood pressure better, presently on nitro drip. CT Head w/ no acute findings. Started on lisinopril and metoprolol. 08/20 Patient's bp low today, bp meds held in am, ordered 500 ml IV bolus, bp improving. Continue to monitor vital signs. Colitis- Likely acute gastroenteritis, Patient states had diarrhea prior to admission along with nausea and vomiting. only started this morning.CTA Aorta w / mild colitis, images reviewed by me, in light of persistent symptoms and elevated neutrophil count Patient was started on IV Ciprofloxacin and IV Flagyl. IVF for hydration. Full liquid diet. 08/20 Patient's abdominal pain improving. No further diarrhea, nausea/vomiting. Continue IV antibiotics. Will advance diet to regular diet. Chest Pain: Likely secondary to GI etiology from persistent vomiting. CXR w/ no acute findings, possible mild infiltrate, CTA Aorta negative for aneurysm or dissection. Initial trop 0.04, EKG w/ no acute changes. Monitor, place on telemetry, check serial enzymes, pain control. Follow-up next troponin. Elevated troponin: Likely secondary to hypertensive crisis. Cardiology consulted. Appreciate recommendations. Given chest pain however cardiology recommends a stress test. will follow up. Non-Compliance: Known h/o HTN, not on antihypertensives, non-compliant w/ meds and follow up. Pt counselled. Substance Abuse: h/o substance abuse, currently on Methadone. Tobacco Abuse: Counselled. Ativan/NicoDerm prn if needed. Hypokalemia: replace orally, continue to monitor BMP. Leukocytosis: Due to colitis. WBC still elevated at 13 K. continue to monitor CBC w diff. DVT Prophylaxis: SCD/Teds. Discharge Planning Continue to monitor in the medical floor. Willie Briceño MD August 20, 2016 16:41
--- NOTE | 2016-08-20 16:48 | EKG ---
Date Performed: 08/19/2016 Time Performed: 15:34:38 PTAGE: 60 years EKG: Sinus rhythm Left axis deviation Possible anteroseptal infarct - age undetermined Compared to previous tracing, t here has been a change in the precordial progression, that may be secondary to lead misplacement vs. possible anteroseptal CT Clinical correlation is suggested Abnormal ECG PREVIOUS TRACING : 08/18/2016 22.38 DOCTOR: Maria Luz Mercer Interpretating Date/Time 08/20/2016 16:45:59
--- NOTE | 2016-08-20 16:49 | EKG ---
Date Performed: 08/20/2016 Time Performed: 08:42:36 PTAGE: 60 years EKG: Sinus rhythm Possible left atrial abnormality Left axis deviation Compared to previous tracing, the patient now h as small R waves again in V1 and V2, thus does not meet criteria for anteroseptal MS, age indetermina nt Borderline ECG PREVIOUS TRACING : 08/19/2016 15.34 DOCTOR: Maria Luz Mercer Interpretating Date/Time 08/20/2016 16:46:45
[2016-08-20] MEDS: ASPIRIN 325 MG TAB PO SCH (17:16)
[2016-08-20] MEDS: ENALAPRILAT 1.25 MG/ML VIAL IV PUSH PRN (17:53)
--- NOTE | 2016-08-20 17:53 | PD.CONS ---
HPI History of Present Illness This is a 60 year old female admitted for nausea and vomiting and diarrhea, with chest pain that started 3 days ago. Diarrhea was watery and urgent and multiple, non bloody. Chest pain was burning and moderate in severity. Vomiting continued but diarrhea stopped after admission. No BM for 2 days now. She had very high blood pressure now controlled but received a CTA of aorta that showed thickening and pericolonic fluid near the splenic flexure suggesting colitis. No stool specimens yet for microbiology. Abdominal pain is not present. She does complain of recurrent constipation, and has severe cramps when she takes dulcolax. Denies seeing any blood per rectum in the past. She has not had a colonoscopy. []. PFSH Past Medical History PMH: HTN, Noncompliance, h/o Substance Abuse and Tobacco Abuse Past Surgical History PAST SURGICAL HISTORY: None Coded Allergies: No Known Allergies (Verified , 08/18/16) Medications Current Medications Medications (Trade) Dose Ordered Sig/Kimberley Route Start Time Stop Time Status Last Admin Nitroglycerin/ Dextrose 250 ml @ 0 mls/hr TITRATE IV 08/19/16 05:15 08/19/16 20:22 Ciprofloxacin/ Dextrose 200 ml @ 200 mls/hr Q12H IV 08/19/16 06:00 08/20/16 05:08 (Flagyl 500 Mg Inj) 100 ml @ 100 mls/hr Q8HR IV 08/19/16 06:00 08/20/16 13:45 (Protonix Inj) 40 mg Q12HR IV PUSH 08/20/16 21:00 (NS Flush) 2 ml UNSCH PRN IV FLUSH 08/19/16 05:30 (NS Flush) 2 ml BID IV FLUSH 08/19/16 09:00 08/20/16 11:34 (Zofran Inj) 4 mg Q6H PRN IVP 08/19/16 05:30 08/20/16 07:34 (Dulcolax Supp) 10 mg DAILY PRN RECTAL 08/19/16 05:30 (Tylenol) 650 mg Q6H PRN PO 08/19/16 05:30 08/20/16 13:46 (Morphine Inj) 2 mg Q3H PRN IV 08/19/16 05:30 08/20/16 07:33 (Morphine Inj) 4 mg Q3H PRN IV 08/19/16 05:30 08/20/16 03:29 (Prinivil) 40 mg DAILY PO 08/19/16 08:00 08/19/16 09:15 (Lopressor) 25 mg Q12HR PO 08/19/16 09:00 08/20/16 11:34 (Vasotec Inj) 1.25 mg Q6H PRN IV PUSH 08/19/16 09:15 08/19/16 09:27 Labetalol HCl 10 mg 10 mg Q4H PRN IV PUSH 08/19/16 13:45 08/19/16 14:05 Dextrose 1,000 ml @ 42 mls/hr [id number] IV 08/19/16 13:45 08/19/16 14:05 (Heparin-D5W Inj) 250 ml @ 0 mls/hr TITRATE IV 08/19/16 21:15 08/19/16 21:48 (Pneumovax-23 Inj) 25 mcg ONCE ONCE IM 08/21/16 10:00 08/21/16 10:01 Aspirin 325 mg 325 mg DAILY PO 08/20/16 16:45 08/20/16 17:16 (NS 1000 ml Inj) 1,000 ml @ 84 mls/hr [id number] IV 08/20/16 17:45 UNV Family History PAST FAMILY HISTORY: Reviewed. No h/o DM or CAD Social History PAST SOCIAL HISTORY: Occasional alcohol. Smokes 1ppd. H/o Substance Abuse, currently on Methadone. Review of Systems Constitutional: DENIES: Diaphoretic episodes, Fatigue, Fever, Weight gain, Weight loss, Chills, Dizziness, Change in appetite, Night Sweats Endocrine: DENIES: Polydipsia, Polyuria Eyes: DENIES: Blurred vision, Photosensitivity, Double Vision Ears, nose, mouth, throat: DENIES: Hearing loss, Vertigo, Oral lesions, Throat pain, Hoarseness Respiratory: DENIES: Cough, Wheezing, Hemoptysis, Sputum production, Shortness of breath Cardiovascular: COMPLAINS OF: Chest pain, DENIES: Palpitations, Syncope, Lower Extremity Edema, Orthopnea, Claudication Genitourinary: DENIES: Urinary frequency, Urinary incontinence, Urgency, Hematuria, Dysuria, Nocturia Musculoskeletal: DENIES: Joint pain, Muscle aches, Stiffness, Joint Swelling, Back pain, Neck pain Integumentary: DENIES: Abnormal pigmentation, Nail changes, Pruritus, Rash, Jaundice Hematologic/lymphatic: DENIES: Bruising, Lymphadenopathy Immunologic/allergic: DENIES: Eczema, Urticaria Neurologic: COMPLAINS OF: Headache Psychiatric: DENIES: Anxiety, Confusion, Mood changes, Depression, Agitation, Suicidal Ideation GI Exam Vitals I&O Vital Signs Date Time Temp Pulse Resp B/P Pulse Ox O2 Delivery O2 Flow Rate FiO2 08/20/16 16:00 98.8 78 16 107/63 98 08/20/16 14:46 16 08/20/16 14:00 66 08/20/16 13:47 102/73 08/20/16 13:00 64 08/20/16 12:00 72 08/20/16 12:00 98.4 70 16 96/52 99 08/20/16 11:00 73 08/20/16 10:00 68 08/20/16 09:00 70 08/20/16 08:00 76 08/20/16 07:38 16 08/20/16 07:30 72 08/20/16 07:26 98.7 74 16 95/60 100 08/20/16 06:00 73 08/20/16 05:00 77 08/20/16 04:00 77 08/20/16 03:00 78 08/20/16 03:00 98.5 75 20 123/80 99 08/20/16 02:00 85 08/20/16 01:00 88 08/20/16 00:00 90 08/19/16 23:00 98.4 100 16 89/53 97 08/19/16 23:00 106 08/19/16 22:00 104 08/19/16 21:00 96 08/19/16 20:00 94 08/19/16 19:30 98.7 88 16 165/99 99 08/19/16 19:00 106 I/O 08/19/16 08/19/16 08/19/16 08/20/16 08/20/16 08/20/16 07:00 15:00 23:00 07:00 15:00 23:00 Intake Total 406 ml 1000 ml 1625 ml Output Total 0 ml 300 ml 750 ml Balance 406 ml 700 ml 875 ml Intake Oral 120 ml 120 ml 700 ml IV Total 286 ml 880 ml 925 ml Output Urine Total 300 ml 750 ml Stool Total 0 ml # Voids 1 # Bowel Movements 0 0 Laboratory Test 08/19/16 08/20/16 08/20/16 21:27 06:04 12:02 White Blood Count 13.0 TH/MM3 13.7 TH/MM3 Red Blood Count 6.19 MIL/MM3 5.43 MIL/MM3 Hemoglobin 13.9 GM/DL 12.3 GM/DL Hematocrit 43.7 % 38.8 % Mean Corpuscular Volume 70.6 FL 71.4 FL Mean Corpuscular Hemoglobin 22.5 PG 22.6 PG Mean Corpuscular Hemoglobin 31.8 % 31.7 % Concent Red Cell Distribution Width 15.7 % 16.0 % Platelet Count 314 TH/MM3 274 TH/MM3 Mean Platelet Volume 7.8 FL 7.7 FL Prothrombin Time 10.3 SEC Prothromb Time International 0.9 RATIO Ratio Activated Partial 24.7 SEC 34.0 SEC 34.3 SEC Thromboplast Time Sodium Level 137 MEQ/L Potassium Level 3.3 MEQ/L Chloride Level 101 MEQ/L Carbon Dioxide Level 24.9 MEQ/L Anion Gap 11 MEQ/L Blood Urea Nitrogen 20 MG/DL Creatinine 0.93 MG/DL Estimat Glomerular Filtration 74 ML/MIN Rate Random Glucose 148 MG/DL Calcium Level 9.7 MG/DL Troponin I 0.08 NG/ML Neutrophils (%) (Auto) 68.3 % Lymphocytes (%) (Auto) 24.6 % Monocytes (%) (Auto) 6.6 % Eosinophils (%) (Auto) 0.0 % Basophils (%) (Auto) 0.5 % Neutrophils # (Auto) 9.3 TH/MM3 Lymphocytes # (Auto) 3.4 TH/MM3 Monocytes # (Auto) 0.9 TH/MM3 Eosinophils # (Auto) 0.0 TH/MM3 Basophils # (Auto) 0.1 TH/MM3 CBC Comment DIFF FINAL Differential Comment Physical Examination HEENT: Pupils round and reactive to light; normocephalic; atraumatic; no jaundice. Throat is clear. NECK: Neck is supple, no JVD, no lymphadenopathy. CHEST: Chest is clear to auscultation and percussion. CARDIAC: Regular rate and rhythm with no murmur gallop or rubs. ABDOMEN: Soft, nondistended, nontender; no hepatosplenomegaly; bowel sounds are present in all four quadrants. EXTREMITIES: No clubbing, cyanosis, or edema. SKIN: Normal; no rash; no jaundice. PRESS SET UP: No focal deficits; alert and oriented times three. Assessment and Plan Plan Impression: Nausea and vomiting, diarrhea Chronic constipation at home Colitis on CTA, possibly constipation induced ischemic colitis Microcytosis, probable iron deficiency Hypertension Plan: Miralax 17 gm po now and BID Continue Cipro and flagyl Iron studies. Stool for occult blood Probably will need EGD and Colonoscopy if iron deficient. Rey Han MD August 20, 2016 17:53
[2016-08-20] MEDS ORDERED: SODIUM CHLOR 0.9% 1000 ML INJ 1,000 ML IV SCH (18:00)
[2016-08-20] MEDS: LABETALOL HCL 100 MG/20 ML VIAL IV PUSH PRN (18:19)
[2016-08-20 18:40] LABS: AUTOMATED NEUTROPHIL # 7.9 TH/MM3 (1.8-7.7); BASOPHIL % 0.3 % (0.0-2.0); HEMATOCRIT 39.4 % (35.0-46.0); HEMO FLAGS DIFF FINAL; LYMPH % 30.2 % (9.0-44.0); LYMPHOCYTE # 3.9 TH/MM3 (1.0-4.8); MEAN CORPUSCULAR HEMOGLOBIN 22.5 PG (27.0-34.0); MEAN CORPUSCULAR HGB CONC 31.3 % (32.0-36.0); MONO % 7.6 % (0.0-8.0); NEUT % 61.9 % (16.0-70.0); PLATELET COUNT 287 TH/MM3 (150-450); RED BLOOD COUNT 5.47 MIL/MM3 (4.00-5.30); RED CELL DISTRIBUTION WIDTH 16.2 % (11.6-17.2); WHITE BLOOD COUNT 12.8 TH/MM3 (4.0-11.0)
[2016-08-20 18:50] LABS: APTT (PATIENT) 41.9 SEC (24.3-30.1)
[2016-08-20 19:05] LABS: POTASSIUM 3.4 MEQ/L (3.5-5.1)
[2016-08-20 19:06] LABS: TRANSFERRIN IRON PROFILE 255 MG/DL (200-360)
[2016-08-20] MEDS ORDERED: PANTOPRAZOLE SODIUM 40 MG VIAL IV PUSH ONE (19:30)
[2016-08-20] MEDS ORDERED: PROMETHAZINE HCL 25 MG SUPP RECTAL PRN (19:30)
[2016-08-20] MEDS: NITROGLYCERIN-DEXTROSE INJ 250 ML IV SCH (19:35)
[2016-08-20] MEDS: HEPARIN-D5W INJ 250 ML IV SCH (19:37)
[2016-08-20] MEDS: PANTOPRAZOLE 80 MG/100 ML NS IV SCH ×2 (20:02)
[2016-08-20] MEDS ORDERED: PANTOPRAZOLE SODIUM 40 MG VIAL IV PUSH SCH (21:00)
[2016-08-20] MEDS: POLYETHYLENE GLYCOL 17 GM PKG PO SCH (21:00)
[2016-08-20] MEDS ORDERED: PROCHLORPERAZINE INJ 10 MG/2 ML VIAL IV PUSH PRN (23:00)
[2016-08-20] MEDS ORDERED: LORazepam 2 MG/ML VIAL IV PUSH ONE (23:00)
[2016-08-21] VITALS (23 sets, daily range): BP systolic 116–194; BP diastolic 64–106; PULSE 71–92; RESP 16; TEMP 98.5–99.3; O2SAT 98–100
[2016-08-21 01:48] LABS: HEMATOCRIT 37.9 % (35.0-46.0); MEAN CELL VOLUME 71.2 FL (80.0-100.0); MEAN CORPUSCULAR HEMOGLOBIN 23.3 PG (27.0-34.0); MEAN CORPUSCULAR HGB CONC 32.7 % (32.0-36.0); PLATELET COUNT 282 TH/MM3 (150-450); RED BLOOD COUNT 5.33 MIL/MM3 (4.00-5.30); RED CELL DISTRIBUTION WIDTH 15.7 % (11.6-17.2); REVIEW FLAG FINAL; WHITE BLOOD COUNT 10.6 TH/MM3 (4.0-11.0)
[2016-08-21 01:58] LABS: APTT (PATIENT) 46.4 SEC (24.3-30.1)
[2016-08-21 02:16] LABS: ALKALINE PHOSPHATASE 83 U/L (45-117); ALT (GPT) 51 U/L (10-53); ANION GAP 8 MEQ/L (5-15); AST (GOT) 49 U/L (15-37); BICARBONATE 24.8 MEQ/L (21.0-32.0); BLOOD UREA NITROGEN 17 MG/DL (7-18); CHLORIDE 106 MEQ/L (98-107); GLOMERULAR FILTRATION RATE 79 ML/MIN (>89); POTASSIUM 3.6 MEQ/L (3.5-5.1); SODIUM (NA) 139 MEQ/L (136-145); TOTAL BILIRUBIN ADULT 0.4 MG/DL (0.2-1.0)
[2016-08-21] MEDS: MORPHINE SULFATE 4 MG/ML INJ IV PRN ×6 (02:20→20:19)
[2016-08-21] MEDS: LABETALOL HCL 100 MG/20 ML VIAL IV PUSH PRN ×2 (04:05→09:17)
[2016-08-21] MEDS: NITROGLYCERIN-DEXTROSE INJ 250 ML IV SCH ×3 (04:06→19:47)
[2016-08-21] MEDS: PANTOPRAZOLE 80 MG/100 ML NS IV SCH ×4 (04:13→14:16)
[2016-08-21] MEDS: metroNIDAZOLE 500 MG INJ 100 ML IV SCH ×3 (05:07→20:19)
[2016-08-21] MEDS: METOPROLOL TARTRATE 25 MG TAB PO SCH ×2 (05:07→17:12)
[2016-08-21] MEDS: CIPROFLOXACIN 400 MG PREMIX 200 ML IV SCH ×2 (05:07→17:16)
[2016-08-21] MEDS: ONDANSETRON HCL 4 MG/2 ML VIAL IVP PRN (05:12)
[2016-08-21] MEDS: ENALAPRILAT 1.25 MG/ML VIAL IV PUSH PRN ×2 (06:16→12:41)
[2016-08-21] MEDS: LISINOPRIL 20 MG TAB PO SCH (09:16)
[2016-08-21] MEDS: POLYETHYLENE GLYCOL 17 GM PKG PO SCH ×2 (09:17→20:18)
[2016-08-21] MEDS: ASPIRIN 325 MG TAB PO SCH (09:17)
[2016-08-21] MEDS: SODIUM CHLORIDE 0.9% FLUSH 10 ML FLUSH IV FLUSH SCH ×2 (09:18→20:19)
[2016-08-21] MEDS ORDERED: PNEUMOCOCCAL POLYVALENT INJ 25 MCG/0.5 ML SYR IM ONE (10:00)
[2016-08-21] MEDS ORDERED: METOPROLOL TARTRATE 25 MG TAB PO SCH ×2 (11:00→17:00)
[2016-08-21] MEDS ORDERED: LISINOPRIL 20 MG TAB PO SCH (11:00)
--- NOTE | 2016-08-21 11:07 | PD.CARD.PN ---
Subjective Subjective Remarks Pt without complaints this am Objective Medications Current Medications Medications (Trade) Dose Ordered Sig/Kimberley Route Start Time Stop Time Status Last Admin Nitroglycerin/ Dextrose 250 ml @ 0 mls/hr TITRATE IV 08/19/16 05:15 08/21/16 09:17 Ciprofloxacin/ Dextrose 200 ml @ 200 mls/hr Q12H IV 08/19/16 06:00 08/21/16 05:07 (Flagyl 500 Mg Inj) 100 ml @ 100 mls/hr Q8HR IV 08/19/16 06:00 08/21/16 05:07 (NS Flush) 2 ml UNSCH PRN IV FLUSH 08/19/16 05:30 (NS Flush) 2 ml BID IV FLUSH 08/19/16 09:00 08/21/16 09:18 (Zofran Inj) 4 mg Q6H PRN IVP 08/19/16 05:30 08/21/16 05:12 (Dulcolax Supp) 10 mg DAILY PRN RECTAL 08/19/16 05:30 (Tylenol) 650 mg Q6H PRN PO 08/19/16 05:30 08/20/16 13:46 (Morphine Inj) 2 mg Q3H PRN IV 08/19/16 05:30 08/20/16 07:33 (Morphine Inj) 4 mg Q3H PRN IV 08/19/16 05:30 08/21/16 09:25 (Vasotec Inj) 1.25 mg Q6H PRN IV PUSH 08/19/16 09:15 08/21/16 06:16 Labetalol HCl 10 mg 10 mg Q4H PRN IV PUSH 08/19/16 13:45 08/21/16 09:17 (Heparin-D5W Inj) 250 ml @ 0 mls/hr TITRATE IV 08/19/16 21:15 08/20/16 19:37 Aspirin 325 mg 325 mg DAILY PO 08/20/16 16:45 08/21/16 09:17 (NS 1000 ml Inj) 1,000 ml @ 84 mls/hr [id number] IV 08/20/16 18:00 08/20/16 18:00 (Miralax) 17 gm BID PO 08/20/16 21:00 08/21/16 09:17 (Prinivil) 40 mg BID PO 08/20/16 21:00 08/21/16 09:16 Metoprolol Tartrate 25 mg 25 mg Q8HR PO 08/20/16 22:00 08/21/16 05:07 (Protonix Inj/NS Inj) 100 ml @ 10 mls/hr Q10H IV 08/20/16 19:30 08/21/16 04:13 (Compazine Inj) 10 mg Q6H PRN IV PUSH 08/20/16 23:00 08/20/16 23:16 (Prinivil) 40 mg DAILY PO 08/21/16 11:00 (Lopressor) 25 mg Q12H PO 08/21/16 17:00 Vital Signs / I&O Vital Signs Date Time Temp Pulse Resp B/P Pulse Ox O2 Delivery O2 Flow Rate FiO2 08/21/16 10:03 16 08/21/16 09:30 99.0 78 16 173/105 100 08/21/16 09:30 15 08/21/16 08:11 99.0 78 16 177/99 100 08/21/16 06:00 88 08/21/16 05:00 88 08/21/16 04:00 76 08/21/16 03:20 100 Nasal Cannula 2.00 08/21/16 03:20 99.3 90 16 174/88 100 08/21/16 03:00 91 08/21/16 02:08 90 08/21/16 01:00 92 08/21/16 00:00 78 08/20/16 23:20 100 Nasal Cannula 2.00 08/20/16 23:14 98.4 89 18 209/115 100 08/20/16 23:00 82 08/20/16 22:00 70 08/20/16 21:00 70 08/20/16 20:00 72 08/20/16 19:10 100 Nasal Cannula 2.00 08/20/16 19:10 98.8 72 16 213/109 100 08/20/16 19:00 69 08/20/16 18:44 73 18 189/102 100 08/20/16 18:05 81 18 192/96 100 08/20/16 18:00 84 08/20/16 18:00 99.4 75 18 194/93 100 08/20/16 17:00 72 08/20/16 16:00 64 08/20/16 16:00 98.8 78 16 107/63 98 08/20/16 15:00 66 08/20/16 14:46 16 08/20/16 14:00 66 08/20/16 13:47 102/73 08/20/16 13:00 64 08/20/16 12:00 72 08/20/16 12:00 98.4 70 16 96/52 99 I/O 08/20/16 08/20/16 08/20/16 08/21/16 08/21/16 08/21/16 07:00 15:00 23:00 07:00 15:00 23:00 Intake Total 1000 ml 1625 ml 1717 ml Output Total 300 ml 750 ml 1000 ml Balance 700 ml 875 ml 717 ml Intake Oral 120 ml 700 ml 240 ml IV Total 880 ml 925 ml 1477 ml Output Urine Total 300 ml 750 ml 1000 ml # Bowel Movements 0 0 0 Physical Exam GENERAL: Well developed, well nourished. No acute distress. HEENT: Jugular venous pressure is normal. CHEST: Lungs clear to auscultation bilaterally. Unlabored respiratory effort. CARDIAC: Regular rate and rhythm without S3, S4, or murmur. ABDOMEN: Soft, nontender, no hepatosplenomegaly. Bowel sounds present. EXTREMITIES: No clubbing, cyanosis, or edema. Laboratory Laboratory Tests Test 08/20/16 08/20/16 08/20/16 08/21/16 12:02 18:25 18:30 01:41 Activated Partial 34.3 SEC 41.9 SEC 46.4 SEC Thromboplast Time White Blood Count 12.8 TH/MM3 10.6 TH/MM3 Red Blood Count 5.47 MIL/MM3 5.33 MIL/MM3 Hemoglobin 12.3 GM/DL 12.4 GM/DL Hematocrit 39.4 % 37.9 % Mean Corpuscular Volume 72.0 FL 71.2 FL Mean Corpuscular Hemoglobin 22.5 PG 23.3 PG Mean Corpuscular Hemoglobin 31.3 % 32.7 % Concent Red Cell Distribution Width 16.2 % 15.7 % Platelet Count 287 TH/MM3 282 TH/MM3 Mean Platelet Volume 7.5 FL 7.7 FL Neutrophils (%) (Auto) 61.9 % Lymphocytes (%) (Auto) 30.2 % Monocytes (%) (Auto) 7.6 % Eosinophils (%) (Auto) 0.0 % Basophils (%) (Auto) 0.3 % Neutrophils # (Auto) 7.9 TH/MM3 Lymphocytes # (Auto) 3.9 TH/MM3 Monocytes # (Auto) 1.0 TH/MM3 Eosinophils # (Auto) 0.0 TH/MM3 Basophils # (Auto) 0.0 TH/MM3 CBC Comment DIFF FINAL Differential Comment Sodium Level 139 MEQ/L 139 MEQ/L Potassium Level 3.4 MEQ/L 3.6 MEQ/L Chloride Level 105 MEQ/L 106 MEQ/L Carbon Dioxide Level 26.0 MEQ/L 24.8 MEQ/L Anion Gap 8 MEQ/L 8 MEQ/L Blood Urea Nitrogen 22 MG/DL 17 MG/DL Creatinine 1.30 MG/DL 0.88 MG/DL Estimat Glomerular Filtration 50 ML/MIN 79 ML/MIN Rate Random Glucose 88 MG/DL 122 MG/DL Calcium Level 8.9 MG/DL 8.8 MG/DL Iron Level 150 MCG/DL Total Iron Binding Capacity 357 MCG/DL Percent Iron Saturation 42.0 % Phosphorus Level 1.9 MG/DL Magnesium Level 2.0 MG/DL Total Bilirubin 0.4 MG/DL Aspartate Amino Transf 49 U/L (AST/SGOT) Alanine Aminotransferase 51 U/L (ALT/SGPT) Alkaline Phosphatase 83 U/L Total Protein 6.6 GM/DL Albumin 3.3 GM/DL Assessment and Plan Assessment and Plan Hypertensive crisis - the patient's blood pressure remains labile. -Lability secondary to pain, N/V and anxiety---vomited up BP meds yesterday - back on NTG gtt, try again with PO meds Elevated troponin - this is most likely secondary to her hypertensive crisis. Nonetheless, given this and the chest pain once she is stabilized, I would like to check a stress test for ischemia, once BP stable GI- BP too labile for any procedures today Smoking - the patient was counseled to quit. Maria Luz Mercer MD August 21, 2016 11:07
--- NOTE | 2016-08-21 12:07 | HHI.GIFU ---
Subjective Remarks Pt resting in bed. Says her nausea was better until she ate yesterday and felt nauseous after and had dry heaves. Has epigastric discomfort. NO diarrhea. No BM today. She does not want to eat. (Bessie Kenny) Objective Vitals I&O Vital Signs Date Time Temp Pulse Resp B/P Pulse Ox O2 Delivery O2 Flow Rate FiO2 08/21/16 11:49 73 08/21/16 11:16 100 Nasal Cannula 2.00 08/21/16 10:03 16 08/21/16 09:30 99.0 78 16 173/105 100 08/21/16 09:30 15 08/21/16 08:11 99.0 78 16 177/99 100 08/21/16 06:00 88 08/21/16 05:00 88 08/21/16 04:00 76 08/21/16 03:20 100 Nasal Cannula 2.00 08/21/16 03:20 99.3 90 16 174/88 100 08/21/16 03:00 91 08/21/16 02:08 90 08/21/16 01:00 92 08/21/16 00:00 78 08/20/16 23:20 100 Nasal Cannula 2.00 08/20/16 23:14 98.4 89 18 209/115 100 08/20/16 23:00 82 08/20/16 22:00 70 08/20/16 21:00 70 08/20/16 20:00 72 08/20/16 19:10 100 Nasal Cannula 2.00 08/20/16 19:10 98.8 72 16 213/109 100 08/20/16 19:00 69 08/20/16 18:44 73 18 189/102 100 08/20/16 18:05 81 18 192/96 100 08/20/16 18:00 84 08/20/16 18:00 99.4 75 18 194/93 100 08/20/16 17:00 72 08/20/16 16:00 64 08/20/16 16:00 98.8 78 16 107/63 98 08/20/16 15:00 66 08/20/16 14:46 16 08/20/16 14:00 66 08/20/16 13:47 102/73 08/20/16 13:00 64 I/O 08/20/16 08/20/16 08/20/16 08/21/16 08/21/16 08/21/16 07:00 15:00 23:00 07:00 15:00 23:00 Intake Total 1000 ml 1625 ml 1717 ml Output Total 300 ml 750 ml 1000 ml Balance 700 ml 875 ml 717 ml Intake Oral 120 ml 700 ml 240 ml IV Total 880 ml 925 ml 1477 ml Output Urine Total 300 ml 750 ml 1000 ml # Bowel Movements 0 0 0 Laboratory Laboratory Tests Test 08/20/16 08/20/16 08/21/16 18:25 18:30 01:41 Activated Partial 41.9 46.4 Thromboplast Time White Blood Count 12.8 10.6 Red Blood Count 5.47 5.33 Hemoglobin 12.3 12.4 Hematocrit 39.4 37.9 Mean Corpuscular Volume 72.0 71.2 Mean Corpuscular Hemoglobin 22.5 23.3 Mean Corpuscular Hemoglobin 31.3 32.7 Concent Red Cell Distribution Width 16.2 15.7 Platelet Count 287 282 Mean Platelet Volume 7.5 7.7 Neutrophils (%) (Auto) 61.9 Lymphocytes (%) (Auto) 30.2 Monocytes (%) (Auto) 7.6 Eosinophils (%) (Auto) 0.0 Basophils (%) (Auto) 0.3 Neutrophils # (Auto) 7.9 Lymphocytes # (Auto) 3.9 Monocytes # (Auto) 1.0 Eosinophils # (Auto) 0.0 Basophils # (Auto) 0.0 CBC Comment DIFF FINAL Differential Comment Sodium Level 139 139 Potassium Level 3.4 3.6 Chloride Level 105 106 Carbon Dioxide Level 26.0 24.8 Anion Gap 8 8 Blood Urea Nitrogen 22 17 Creatinine 1.30 0.88 Estimat Glomerular Filtration 50 79 Rate Random Glucose 88 122 Calcium Level 8.9 8.8 Iron Level 150 Total Iron Binding Capacity 357 Percent Iron Saturation 42.0 Phosphorus Level 1.9 Magnesium Level 2.0 Total Bilirubin 0.4 Aspartate Amino Transf 49 (AST/SGOT) Alanine Aminotransferase 51 (ALT/SGPT) Alkaline Phosphatase 83 Total Protein 6.6 Albumin 3.3 Imaging Last Impressions Aorta CTA 08/19/16 2243 Signed Impressions: Service Date/Time: Friday, August 19, 2016 00:05 - CONCLUSION: 1. Negative CTA of the aorta, except for mild atherosclerotic disease. Specifically no aneurysm or dissection. Small hiatal hernia. 2. There is some mild mural thickening of the colon with minimal pericolonic fat stranding near the splenic flexure are most characteristic of a mild colitis. Henrry Ho MD Chest X-Ray 08/18/16 2225 Signed Impressions: Service Date/Time: Thursday, August 18, 2016 22:36 - CONCLUSION: Early or mild left base pneumonia suspected. Sly Cage MD Head CT 08/18/16 0000 Signed Impressions: Service Date/Time: Friday, August 19, 2016 00:01 - CONCLUSION: Normal examination. Henrry Ho MD Physical Exam HEENT: EOMI; normocephalic; atraumatic; no jaundice. T CHEST: CTA CARDIAC: RRR ABDOMEN: Soft, nondistended, mild epgastric TTP; no hepatosplenomegaly; bowel sounds are present in all four quadrants. EXTREMITIES: No clubbing, cyanosis, or edema. SKIN: Normal; no rash; no jaundice. [employer]: No focal deficits; alert and oriented times three. (Bessie Kenny) Assessment and Plan Plan ASSESSMENT - Nausea and vomiting, diarrhea - diarrhea improved, pt still with nausea when eating, epigastric discomfrot. May need EGD but per cardiology no GI procedures at this time. Chronic constipation at home Colitis on CTA, possibly constipation induced ischemic colitis Microcytosis, probable iron deficiency - iron studies WNL Hypertension - per cardiology still labile Plan: - Continue Cipro and flagyl - EGD when cleared - await Stool for occult blood - clears This pt seen by myself and Dr Encarnacion and this note is written on his behalf ( Bessie Kenny) Physician Comments Patient seen and examined Agree with above Continue with current supportive care Monitor labs EGD when cleared by cardiology (Juan Encarnacion MD) Bessie Kenny August 21, 2016 12:07 Juan Encarnacion MD August 21, 2016 19:39
[2016-08-21] MEDS: hydrALAZINE HCL 20 MG/ML VIAL IV PUSH PRN (14:02)
[2016-08-21] MEDS: ACETAMINOPHEN 325 MG TAB PO PRN (15:41)
--- NOTE | 2016-08-21 17:24 | HHI.PR ---
Subjective Remarks Deferred entry - patient seen earlier at 13:40 hrs Patient c/o mild headache denies cp/sob bp very elevated and uncontrolled started on nitro drip Objective Vitals Vital Signs Date Time Temp Pulse Resp B/P Pulse Ox O2 Delivery O2 Flow Rate FiO2 08/21/16 16:44 16 08/21/16 16:36 99.0 85 16 174/98 100 08/21/16 16:32 100 Nasal Cannula 08/21/16 16:32 83 08/21/16 15:53 16 08/21/16 13:17 71 08/21/16 13:17 71 16 194/106 98 08/21/16 12:07 73 08/21/16 11:49 73 08/21/16 11:16 100 Nasal Cannula 2.00 08/21/16 10:03 16 08/21/16 09:30 99.0 78 16 173/105 100 08/21/16 08:11 99.0 78 16 177/99 100 08/21/16 06:00 88 08/21/16 05:00 88 08/21/16 04:00 76 08/21/16 03:20 100 Nasal Cannula 2.00 08/21/16 03:20 99.3 90 16 174/88 100 08/21/16 03:00 91 08/21/16 02:08 90 08/21/16 01:00 92 08/21/16 00:00 78 08/20/16 23:20 100 Nasal Cannula 2.00 08/20/16 23:14 98.4 89 18 209/115 100 08/20/16 23:00 82 08/20/16 22:00 70 08/20/16 21:00 70 08/20/16 20:00 72 08/20/16 19:10 100 Nasal Cannula 2.00 08/20/16 19:10 98.8 72 16 213/109 100 08/20/16 19:00 69 08/20/16 18:44 73 18 189/102 100 08/20/16 18:05 81 18 192/96 100 08/20/16 18:00 84 08/20/16 18:00 99.4 75 18 194/93 100 I/O 08/20/16 08/20/16 08/20/16 08/21/16 08/21/16 08/21/16 06:59 14:59 22:59 06:59 14:59 22:59 Intake Total 1000 ml 1625 ml 1717 ml Output Total 300 ml 750 ml 1000 ml Balance 700 ml 875 ml 717 ml Intake Oral 120 ml 700 ml 240 ml IV Total 880 ml 925 ml 1477 ml Output Urine Total 300 ml 750 ml 1000 ml # Bowel Movements 0 0 0 Result Diagram: 08/21/16 0141 08/21/16 0141 Imaging Last Impressions Aorta CTA 08/19/16 2243 Signed Impressions: Service Date/Time: Friday, August 19, 2016 00:05 - CONCLUSION: 1. Negative CTA of the aorta, except for mild atherosclerotic disease. Specifically no aneurysm or dissection. Small hiatal hernia. 2. There is some mild mural thickening of the colon with minimal pericolonic fat stranding near the splenic flexure are most characteristic of a mild colitis. Henrry Ho MD Chest X-Ray 08/18/165 Signed Impressions: Service Date/Time: Thursday, August 18, 2016 22:36 - CONCLUSION: Early or mild left base pneumonia suspected. Sly Cage MD Head CT 08/18/16 0000 Signed Impressions: Service Date/Time: Friday, August 19, 2016 00:01 - CONCLUSION: Normal examination. Henrry Ho MD Objective Remarks GENERAL: Middle-aged black female in no acute distress. HEENT: PERRLA, EOMI. No scleral icterus or conjunctival pallor. No lid lag or facial droop. CARDIOVASCULAR: Regular rate and rhythm. No obvious murmurs to auscultation. No chest tenderness to palpation. RESPIRATORY: No obvious rhonchi or wheezing. Clear to auscultation. Breath sounds equal bilaterally. GASTROINTESTINAL: Abdomen soft, mild tenderness to palpation over left flank and LLQ, mild pain in epigastric region as well, nondistended. BS normal. MUSCULOSKELETAL: Extremities without clubbing, cyanosis, or edema. No obvious deformities. NEUROLOGICAL: Awake, alert and oriented x4. No focal neurologic deficits. Moving both upper and lower extremities spontaneously. Procedures none Medications and IVs Current Medications Medications (Trade) Dose Ordered Sig/Kimberley Route Start Time Stop Time Status Last Admin Nitroglycerin/ Dextrose 250 ml @ 0 mls/hr TITRATE IV 08/19/16 05:15 08/21/16 09:17 Ciprofloxacin/ Dextrose 200 ml @ 200 mls/hr Q12H IV 08/19/16 06:00 08/21/16 05:07 (Flagyl 500 Mg Inj) 100 ml @ 100 mls/hr Q8HR IV 08/19/16 06:00 08/21/16 14:03 (NS Flush) 2 ml UNSCH PRN IV FLUSH 08/19/16 05:30 (NS Flush) 2 ml BID IV FLUSH 08/19/16 09:00 08/21/16 09:18 (Zofran Inj) 4 mg Q6H PRN IVP 08/19/16 05:30 08/21/16 05:12 (Dulcolax Supp) 10 mg DAILY PRN RECTAL 08/19/16 05:30 (Tylenol) 650 mg Q6H PRN PO 08/19/16 05:30 08/21/16 15:41 (Morphine Inj) 2 mg Q3H PRN IV 08/19/16 05:30 08/20/16 07:33 (Morphine Inj) 4 mg Q3H PRN IV 08/19/16 05:30 08/21/16 15:31 (Vasotec Inj) 1.25 mg Q6H PRN IV PUSH 08/19/16 09:15 08/21/16 12:41 Labetalol HCl 10 mg 10 mg Q4H PRN IV PUSH 08/19/16 13:45 08/21/16 09:17 (Heparin-D5W Inj) 250 ml @ 0 mls/hr TITRATE IV 08/19/16 21:15 08/20/16 19:37 (Aspirin) 325 mg DAILY PO 08/20/16 16:45 08/21/16 09:17 Polyethylene Glycol 17 gm 17 gm BID PO 08/20/16 21:00 08/21/16 09:17 (Protonix Inj/NS Inj) 100 ml @ 10 mls/hr Q10H IV 08/20/16 19:30 08/21/16 14:16 (Compazine Inj) 10 mg Q6H PRN IV PUSH 08/20/16 23:00 08/20/16 23:16 (Prinivil) 40 mg DAILY PO 08/22/16 09:00 (Apresoline Inj) 10 mg Q30M PRN IV PUSH 08/21/16 13:45 08/21/16 14:02 (Lopressor) 50 mg Q12H PO 08/21/16 17:00 Urinary Catheter: No Vascular Central Line Catheter: No A/P Problem List: (1) Hypertensive urgency ICD Code: I16.0 Status: Resolved (2) Intractable nausea and vomiting ICD Code: R11.2 Status: Resolved (3) Colitis ICD Code: K52.9 Status: Acute (4) Chest pain ICD Code: R07.9 Status: Resolved (5) Non-compliance ICD Code: Z91.19 Status: Acute (6) Substance abuse ICD Code: F19.10 Status: Chronic (7) Tobacco abuse ICD Code: Z72.0 Status: Chronic (8) Diarrhea ICD Code: R19.7 Status: Resolved (9) Leukocytosis ICD Code: D72.829 Status: Resolved Assessment and Plan This is a 60-year-old female with previous history of substance abuse and noncompliance admitted for headache, abdominal pain and nausea, vomiting and diarrhea. Hypertensive emergency-h/o HTN, Non-compliant w/ medications. Headache likely secondary to hypertensive emergency On arrival, BP 230's systolic, s/p Labetalol 20mg IV x1 in ER, repeat BP 190's-likely compounded by c/o abdominal pain and persistent nausea/vomiting. Blood pressure better, presently on nitro drip. CT Head w/ no acute findings. Started on lisinopril and metoprolol. 08/20 Patient's bp low today, bp meds held in am, ordered 500 ml IV bolus, bp improving. Continue to monitor vital signs. 08/21 BP very uncontrolled - restarted on nitroglycerin drip. I will resume home antihypertensive medications and increase metoprolol dose to 50 mg by mouth every 12 hours. I will also add hydralazine 10 mg IV push every 30 minutes as needed for systolic blood pressure more than 160 and will start Doxazosin at bedtime. Titrate Nitro glycerin drip to off. Colitis- Likely acute gastroenteritis, Patient states had diarrhea prior to admission along with nausea and vomiting. only started this morning.CTA Aorta w / mild colitis, images reviewed by me, in light of persistent symptoms and elevated neutrophil count Patient was started on IV Ciprofloxacin and IV Flagyl. IVF for hydration. Full liquid diet. 08/20 Patient's abdominal pain improving. No further diarrhea, nausea/vomiting. Continue IV antibiotics. Will advance diet to regular diet. 08/21 patient is tolerating regular diet. Continue IV Cipro Floxin and IV Flagyl. Chest Pain: Likely secondary to GI etiology from persistent vomiting. CXR w/ no acute findings, possible mild infiltrate, CTA Aorta negative for aneurysm or dissection. Initial trop 0.04, EKG w/ no acute changes. Monitor, place on telemetry, check serial enzymes, pain control. Follow-up next troponin. Elevated troponin: Likely secondary to hypertensive crisis. Cardiology consulted. Appreciate recommendations. Given chest pain however cardiology recommends a stress test. will follow up. 08/21 BP too elevated for any procedures today. Non-Compliance: Known h/o HTN, not on antihypertensives, non-compliant w/ meds and follow up. Pt counselled. Substance Abuse: h/o substance abuse, currently on Methadone. Tobacco Abuse: Counselled. Ativan/NicoDerm prn if needed. Hypokalemia: Likely potassium low secondary to GI loss. Replaced orally, potassium level normal now. Continue to monitor BMP. Leukocytosis: Due to colitis. WBC trending down, down to 10.6 K. Continue to monitor CBC with diff. DVT Prophylaxis: SCD/Teds. Discharge Planning Continue to monitor in the medical floor. Problem Qualifiers (1) Leukocytosis: Qualified Code: D72.829 - Leukocytosis, unspecified type Willie Briceño MD August 21, 2016 17:24
[2016-08-21] MEDS: HEPARIN-D5W INJ 250 ML IV SCH (19:47)
[2016-08-21] MEDS ORDERED: TEMAZEPAM 7.5 MG CAP PO ONE (22:30)
[2016-08-22] VITALS (26 sets, daily range): BP systolic 114–211; BP diastolic 60–117; PULSE 53–103; RESP 16–18; TEMP 98.2–98.9; O2SAT 98–99
[2016-08-22] MEDS: PANTOPRAZOLE 80 MG/100 ML NS IV SCH ×8 (00:18→21:41)
[2016-08-22] MEDS: CIPROFLOXACIN 400 MG PREMIX 200 ML IV SCH (06:05)
[2016-08-22] MEDS: METOPROLOL TARTRATE 25 MG TAB PO SCH ×2 (06:11→16:07)
[2016-08-22 06:24] LABS: AUTOMATED NEUTROPHIL # 4.5 TH/MM3 (1.8-7.7); BASOPHIL # 0.1 TH/MM3 (0-0.2); BASOPHIL % 0.5 % (0.0-2.0); EOSINOPHIL % 0.1 % (0.0-4.0); HEMATOCRIT 35.3 % (35.0-46.0); HEMO FLAGS DIFF FINAL; LYMPH % 46.7 % (9.0-44.0); LYMPHOCYTE # 4.7 TH/MM3 (1.0-4.8); MEAN CELL VOLUME 72.5 FL (80.0-100.0); MEAN CORPUSCULAR HEMOGLOBIN 22.7 PG (27.0-34.0); MEAN CORPUSCULAR HGB CONC 31.4 % (32.0-36.0); MONO % 8.2 % (0.0-8.0); NEUT % 44.5 % (16.0-70.0); PLATELET COUNT 241 TH/MM3 (150-450); RED BLOOD COUNT 4.86 MIL/MM3 (4.00-5.30); RED CELL DISTRIBUTION WIDTH 15.7 % (11.6-17.2); WHITE BLOOD COUNT 10.2 TH/MM3 (4.0-11.0)
[2016-08-22] MEDS: metroNIDAZOLE 500 MG INJ 100 ML IV SCH (06:25)
[2016-08-22 06:38] LABS: APTT (PATIENT) 81.4 SEC (24.3-30.1)
[2016-08-22 06:51] LABS: ALKALINE PHOSPHATASE 73 U/L (45-117); ALT (GPT) 35 U/L (10-53); ANION GAP 7 MEQ/L (5-15); AST (GOT) 21 U/L (15-37); BICARBONATE 26.6 MEQ/L (21.0-32.0); BLOOD UREA NITROGEN 8 MG/DL (7-18); CHLORIDE 108 MEQ/L (98-107); GLOMERULAR FILTRATION RATE 83 ML/MIN (>89); POTASSIUM 3.2 MEQ/L (3.5-5.1); SODIUM (NA) 142 MEQ/L (136-145); TOTAL BILIRUBIN ADULT 0.5 MG/DL (0.2-1.0)
--- NOTE | 2016-08-22 07:37 | PD.CARD.PN ---
Subjective Subjective Remarks Pt without complaints Objective Medications Current Medications Medications (Trade) Dose Ordered Sig/Kimberley Route Start Time Stop Time Status Last Admin Nitroglycerin/ Dextrose 250 ml @ 0 mls/hr TITRATE IV 08/19/16 05:15 08/21/16 19:47 Ciprofloxacin/ Dextrose 200 ml @ 200 mls/hr Q12H IV 08/19/16 06:00 08/22/16 06:05 (Flagyl 500 Mg Inj) 100 ml @ 100 mls/hr Q8HR IV 08/19/16 06:00 08/22/16 06:25 (NS Flush) 2 ml UNSCH PRN IV FLUSH 08/19/16 05:30 (NS Flush) 2 ml BID IV FLUSH 08/19/16 09:00 08/21/16 09:18 (Zofran Inj) 4 mg Q6H PRN IVP 08/19/16 05:30 08/21/16 05:12 (Dulcolax Supp) 10 mg DAILY PRN RECTAL 08/19/16 05:30 (Tylenol) 650 mg Q6H PRN PO 08/19/16 05:30 08/21/16 15:41 (Morphine Inj) 2 mg Q3H PRN IV 08/19/16 05:30 08/20/16 07:33 (Morphine Inj) 4 mg Q3H PRN IV 08/19/16 05:30 08/21/16 20:19 (Vasotec Inj) 1.25 mg Q6H PRN IV PUSH 08/19/16 09:15 08/21/16 12:41 Labetalol HCl 10 mg 10 mg Q4H PRN IV PUSH 08/19/16 13:45 08/21/16 09:17 (Heparin-D5W Inj) 250 ml @ 0 mls/hr TITRATE IV 08/19/16 21:15 08/21/16 19:47 (Aspirin) 325 mg DAILY PO 08/20/16 16:45 08/21/16 09:17 Polyethylene Glycol 17 gm 17 gm BID PO 08/20/16 21:00 08/21/16 20:18 (Protonix Inj/NS Inj) 100 ml @ 10 mls/hr Q10H IV 08/20/16 19:30 08/22/16 00:18 (Compazine Inj) 10 mg Q6H PRN IV PUSH 08/20/16 23:00 08/20/16 23:16 (Prinivil) 40 mg DAILY PO 08/22/16 09:00 (Apresoline Inj) 10 mg Q30M PRN IV PUSH 08/21/16 13:45 08/21/16 14:02 (Lopressor) 50 mg Q12H PO 08/21/16 17:00 08/22/16 06:11 Vital Signs / I&O Vital Signs Date Time Temp Pulse Resp B/P Pulse Ox O2 Delivery O2 Flow Rate FiO2 08/22/16 06:00 86 08/22/16 05:00 82 08/22/16 04:30 82 08/22/16 03:30 98.2 85 16 114/60 98 08/22/16 03:30 99 Room Air 08/22/16 03:30 79 08/22/16 02:26 82 08/22/16 01:47 53 08/22/16 00:00 79 08/21/16 23:20 98.7 74 16 126/64 99 08/21/16 23:20 99 Room Air 08/21/16 23:00 79 08/21/16 22:00 72 08/21/16 21:00 75 08/21/16 20:00 90 08/21/16 19:00 98.5 92 16 116/67 99 08/21/16 19:00 99 Nasal Cannula 2.00 08/21/16 19:00 74 08/21/16 18:00 74 08/21/16 17:00 80 08/21/16 16:44 16 08/21/16 16:36 99.0 85 16 174/98 100 08/21/16 16:32 100 Nasal Cannula 08/21/16 16:32 83 08/21/16 15:53 16 08/21/16 13:17 71 08/21/16 13:17 71 16 194/106 98 08/21/16 12:07 73 08/21/16 11:49 73 08/21/16 11:16 100 Nasal Cannula 2.00 08/21/16 10:03 16 08/21/16 09:30 99.0 78 16 173/105 100 08/21/16 08:11 99.0 78 16 177/99 100 I/O 08/21/16 08/21/16 08/21/16 08/22/1623/17 5/23/17 07:00 15:00 23:00 07:00 15:00 23:00 Intake Total 1717 ml 2608 ml 1079 ml Output Total 1000 ml 1200 ml 800 ml Balance 717 ml 1408 ml 279 ml Intake Oral 240 ml 720 ml 690 ml IV Total 1477 ml 1888 ml 389 ml Output Urine Total 1000 ml 1200 ml 800 ml # Bowel Movements 0 0 0 Physical Exam GENERAL: Well developed, well nourished. No acute distress. HEENT: Jugular venous pressure is normal. CHEST: Lungs clear to auscultation bilaterally. Unlabored respiratory effort. CARDIAC: Regular rate and rhythm without S3, S4, or murmur. ABDOMEN: Soft, nontender, no hepatosplenomegaly. Bowel sounds present. EXTREMITIES: No clubbing, cyanosis, or edema. Laboratory Laboratory Tests Test 08/22/16 05:09 White Blood Count 10.2 TH/MM3 Red Blood Count 4.86 MIL/MM3 Hemoglobin 11.1 GM/DL Hematocrit 35.3 % Mean Corpuscular Volume 72.5 FL Mean Corpuscular Hemoglobin 22.7 PG Mean Corpuscular Hemoglobin 31.4 % Concent Red Cell Distribution Width 15.7 % Platelet Count 241 TH/MM3 Mean Platelet Volume 7.8 FL Neutrophils (%) (Auto) 44.5 % Lymphocytes (%) (Auto) 46.7 % Monocytes (%) (Auto) 8.2 % Eosinophils (%) (Auto) 0.1 % Basophils (%) (Auto) 0.5 % Neutrophils # (Auto) 4.5 TH/MM3 Lymphocytes # (Auto) 4.7 TH/MM3 Monocytes # (Auto) 0.8 TH/MM3 Eosinophils # (Auto) 0.0 TH/MM3 Basophils # (Auto) 0.1 TH/MM3 CBC Comment DIFF FINAL Differential Comment Activated Partial 81.4 SEC Thromboplast Time Sodium Level 142 MEQ/L Potassium Level 3.2 MEQ/L Chloride Level 108 MEQ/L Carbon Dioxide Level 26.6 MEQ/L Anion Gap 7 MEQ/L Blood Urea Nitrogen 8 MG/DL Creatinine 0.84 MG/DL Estimat Glomerular Filtration 83 ML/MIN Rate Random Glucose 94 MG/DL Calcium Level 8.9 MG/DL Total Bilirubin 0.5 MG/DL Aspartate Amino Transf 21 U/L (AST/SGOT) Alanine Aminotransferase 35 U/L (ALT/SGPT) Alkaline Phosphatase 73 U/L Total Protein 6.1 GM/DL Albumin 3.0 GM/DL Assessment and Plan Assessment and Plan Hypertensive crisis - BP better controlled, d/c NTG gtt -Lability secondary to pain, N/V and anxiety-- better Elevated troponin - this is most likely secondary to her hypertensive crisis. -kimani nuc stress hypokalemia- potassium prior to nuc GI- Smoking - the patient was counseled to quit. Maria Luz Mercer MD August 22, 2016 07:37
[2016-08-22] MEDS: POLYETHYLENE GLYCOL 17 GM PKG PO SCH ×2 (08:08→21:00)
[2016-08-22] MEDS: ASPIRIN 325 MG TAB PO SCH (08:08)
[2016-08-22] MEDS: MORPHINE SULFATE 4 MG/ML INJ IV PRN ×2 (08:11→11:28)
[2016-08-22] MEDS: SODIUM CHLORIDE 0.9% FLUSH 10 ML FLUSH IV FLUSH SCH ×2 (08:19→19:39)
[2016-08-22] MEDS: POTASSIUM CHLORIDE 25 MEQ EFFERVESCENT TAB NG SCH (08:24)
[2016-08-22] MEDS: ONDANSETRON HCL 4 MG/2 ML VIAL IVP PRN ×2 (08:58→22:34)
[2016-08-22] MEDS ORDERED: LISINOPRIL 20 MG TAB PO SCH (09:00)
[2016-08-22] MEDS: LABETALOL HCL 100 MG/20 ML VIAL IV PUSH PRN (09:43)
[2016-08-22] MEDS ORDERED: POTASSIUM CHLORIDE 20 MEQ CONTROLLED RELEASE TAB PO ONE (10:00)
[2016-08-22] MEDS: hydrALAZINE HCL 20 MG/ML VIAL IV PUSH PRN ×2 (10:03→12:56)
[2016-08-22] MEDS: ENALAPRILAT 1.25 MG/ML VIAL IV PUSH PRN (10:35)
[2016-08-22] MEDS ORDERED: ALUMINUM/MAGNESIUM/SIMETH 30 ML CUP PO PRN (11:15)
[2016-08-22] MEDS ORDERED: SUCRALFATE 1 GM/10 ML CUP PO ONE (11:30)
[2016-08-22] MEDS ORDERED: ALUMINUM/MAGNESIUM/SIMETH 30 ML CUP PO ONE (11:30)
[2016-08-22] MEDS ORDERED: DOXAZOSIN MESYLATE 2 MG TAB PO SCH (12:00)
[2016-08-22] MEDS ORDERED: HYDROmorphone HCL PF 1 MG/ML VIAL IV PUSH ONE ×2 (12:45→16:00)
[2016-08-22] MEDS ORDERED: DOXAZOSIN MESYLATE 2 MG TAB PO ONE (12:45)
[2016-08-22] MEDS: metroNIDAZOLE 500 MG TAB PO SCH ×2 (13:56→21:40)
[2016-08-22] MEDS ORDERED: REGADENOSON INJ 0.4 MG/5 ML SYR ONE (14:29)
--- NOTE | 2016-08-22 14:31 | HHI.PR ---
Subjective Remarks deferred entry patient seen at 11:15 am Patient c/o severe epigastric pain worst on palpation of epigastric region associated with nausea but no vomiting denies fevers or chills BP was better controlled, however trending up and higher ever since nitroglycerin drip discontinued patient denies headache denies dizziness As per RN states has tried giving IV hydralazine and IV Labetalol but BP still elevated Objective Vitals Vital Signs Date Time Temp Pulse Resp B/P Pulse Ox O2 Delivery O2 Flow Rate FiO2 08/22/16 14:12 98 08/22/16 13:32 18 08/22/16 13:02 87 08/22/16 12:58 83 08/22/16 11:36 99 Room Air 08/22/16 11:36 98.6 78 18 166/83 98 08/22/16 11:36 86 08/22/16 11:33 18 08/22/16 10:20 83 08/22/16 10:15 98.5 68 211/117 99 08/22/16 09:51 75 08/22/16 09:45 98.5 69 197/98 99 08/22/16 08:04 78 08/22/16 07:42 88 08/22/16 07:42 98.6 66 18 150/92 98 08/22/16 07:42 98 Room Air 08/22/16 06:00 86 08/22/16 05:00 82 08/22/16 04:30 82 08/22/16 03:30 98.2 85 16 114/60 98 08/22/16 03:30 99 Room Air 08/22/16 03:30 79 08/22/16 02:26 82 08/22/16 01:47 53 08/22/16 00:00 79 08/21/16 23:20 98.7 74 16 126/64 99 08/21/16 23:20 99 Room Air 08/21/16 23:00 79 08/21/16 22:00 72 08/21/16 21:00 75 08/21/16 20:00 90 08/21/16 19:00 98.5 92 16 116/67 99 08/21/16 19:00 99 Nasal Cannula 2.00 08/21/16 19:00 74 08/21/16 18:00 74 08/21/16 17:00 80 08/21/16 16:44 16 08/21/16 16:36 99.0 85 16 174/98 100 08/21/16 16:32 100 Nasal Cannula 08/21/16 16:32 83 I/O 08/21/16 08/21/16 08/21/16 08/22/16 08/22/16 08/22/16 06:59 14:59 22:59 06:59 14:59 22:59 Intake Total 1717 ml 2608 ml 1079 ml Output Total 1000 ml 1200 ml 800 ml Balance 717 ml 1408 ml 279 ml Intake Oral 240 ml 720 ml 690 ml IV Total 1477 ml 1888 ml 389 ml Output Urine Total 1000 ml 1200 ml 800 ml # Bowel Movements 0 0 0 Result Diagram: 08/22/16 0509 08/22/16 0509 Imaging Last Impressions Aorta CTA 08/19/162242 Signed Impressions: Service Date/Time: Friday, August 19, 2016 00:05 - CONCLUSION: 1. Negative CTA of the aorta, except for mild atherosclerotic disease. Specifically no aneurysm or dissection. Small hiatal hernia. 2. There is some mild mural thickening of the colon with minimal pericolonic fat stranding near the splenic flexure are most characteristic of a mild colitis. Henrry oH MD Chest X-Ray 08/18/165 Signed Impressions: Service Date/Time: Thursday, August 18, 2016 22:36 - CONCLUSION: Early or mild left base pneumonia suspected. Sly Cage MD Head CT 08/18/16 0000 Signed Impressions: Service Date/Time: Friday, August 19, 2016 00:01 - CONCLUSION: Normal examination. Henrry Ho MD Objective Remarks GENERAL: Middle-aged black female in moderate distress due to epigastric pain. Crying. HEENT: PERRLA, EOMI. No scleral icterus or conjunctival pallor. No lid lag or facial droop. CARDIOVASCULAR: Regular rate and rhythm. No obvious murmurs to auscultation. No chest tenderness to palpation. RESPIRATORY: No obvious rhonchi or wheezing. Clear to auscultation. Breath sounds equal bilaterally. GASTROINTESTINAL: Abdomen soft, moderate tenderness to palpation over epigastric region, nondistended. BS normal. MUSCULOSKELETAL: Extremities without clubbing, cyanosis, or edema. No obvious deformities. NEUROLOGICAL: Awake, alert and oriented x4. No focal neurologic deficits. Moving both upper and lower extremities spontaneously. Procedures none Medications and IVs Current Medications Medications (Trade) Dose Ordered Sig/Kimberley Route Start Time Stop Time Status Last Admin (NS Flush) 2 ml UNSCH PRN IV FLUSH 08/19/16 05:30 (NS Flush) 2 ml BID IV FLUSH 08/19/16 09:00 08/22/16 08:19 (Zofran Inj) 4 mg Q6H PRN IVP 08/19/16 05:30 08/22/16 08:58 (Dulcolax Supp) 10 mg DAILY PRN RECTAL 08/19/16 05:30 (Tylenol) 650 mg Q6H PRN PO 08/19/16 05:30 08/21/16 15:41 (Morphine Inj) 2 mg Q3H PRN IV 08/19/16 05:30 08/20/16 07:33 (Morphine Inj) 4 mg Q3H PRN IV 08/19/16 05:30 08/22/16 11:28 (Vasotec Inj) 1.25 mg Q6H PRN IV PUSH 08/19/16 09:15 08/22/16 10:35 Labetalol HCl 10 mg 10 mg Q4H PRN IV PUSH 08/19/16 13:45 08/22/16 09:43 (Heparin-D5W Inj) 250 ml @ 0 mls/hr TITRATE IV 08/19/16 21:15 08/21/16 19:47 (Aspirin) 325 mg DAILY PO 08/20/16 16:45 08/22/16 08:08 Polyethylene Glycol 17 gm 17 gm BID PO 08/20/16 21:00 08/22/16 08:08 (Protonix Inj/NS Inj) 100 ml @ 10 mls/hr Q10H IV 08/20/16 19:30 08/22/16 11:27 (Compazine Inj) 10 mg Q6H PRN IV PUSH 08/20/16 23:00 08/20/16 23:16 (Prinivil) 40 mg DAILY PO 08/22/16 09:00 08/22/16 08:08 (Apresoline Inj) 10 mg Q30M PRN IV PUSH 08/21/16 13:45 08/22/16 12:56 (Lopressor) 50 mg Q12H PO 08/21/16 17:00 08/22/16 06:11 (K-Lyte Cl Eff) 25 meq DAILY NG 08/22/16 09:00 08/22/16 08:24 (Cipro) 500 mg Q12H PO 08/22/16 18:00 (Flagyl) 500 mg Q8HR PO 08/22/16 14:00 08/22/16 13:56 (Carafate Liq) 1 gm ACHS PO 08/23/16 16:00 (Mag-Al Plus Susp Liq) 30 ml Q6H PRN PO 08/22/16 11:15 (Cardura) 2 mg DAILY PO 08/23/16 09:00 Urinary Catheter: No Vascular Central Line Catheter: No A/P Problem List: (1) Hypertensive urgency ICD Code: I16.0 Status: Resolved (2) Intractable nausea and vomiting ICD Code: R11.2 Status: Resolved (3) Colitis ICD Code: K52.9 Status: Acute (4) Chest pain ICD Code: R07.9 Status: Resolved (5) Non-compliance ICD Code: Z91.19 Status: Acute (6) Substance abuse ICD Code: F19.10 Status: Chronic (7) Tobacco abuse ICD Code: Z72.0 Status: Chronic (8) Diarrhea ICD Code: R19.7 Status: Resolved (9) Leukocytosis ICD Code: D72.829 Status: Resolved Assessment and Plan This is a 60-year-old female with previous history of substance abuse and noncompliance admitted for headache, abdominal pain and nausea, vomiting and diarrhea. Hypertensive emergency-h/o HTN, Non-compliant w/ medications. Headache likely secondary to hypertensive emergency On arrival, BP 230's systolic, s/p Labetalol 20mg IV x1 in ER, repeat BP 190's-likely compounded by c/o abdominal pain and persistent nausea/vomiting. Blood pressure better, presently on nitro drip. CT Head w/ no acute findings. Started on lisinopril and metoprolol. 08/20 Patient's bp low today, bp meds held in am, ordered 500 ml IV bolus, bp improving. Continue to monitor vital signs. 08/21 BP very uncontrolled - restarted on nitroglycerin drip. I will resume home antihypertensive medications and increase metoprolol dose to 50 mg by mouth every 12 hours. I will also add hydralazine 10 mg IV push every 30 minutes as needed for systolic blood pressure more than 160 and will start Doxazosin at bedtime. Titrate Nitro glycerin drip to off. 08/22 patient's blood pressure better this a.m, patient's nitroglycerin discontinued by cardiology. However patient with increased epigastric pain and now with worsening blood pressure up to systolic blood pressure of 200 as per RN. I will give an extra dose of 2 mg of Zosyn by mouth once and will also give a dose of IV Dilaudid to control pain which could be contributing to the uncontrolled blood pressure. Colitis- Likely acute gastroenteritis, Patient states had diarrhea prior to admission along with nausea and vomiting. only started this morning.CTA Aorta w / mild colitis, images reviewed by me, in light of persistent symptoms and elevated neutrophil count Patient was started on IV Ciprofloxacin and IV Flagyl. IVF for hydration. Full liquid diet. 08/20 Patient's abdominal pain improving. No further diarrhea, nausea/vomiting. Continue IV antibiotics. Will advance diet to regular diet. 08/21 patient is tolerating regular diet. Continue IV Cipro Floxin and IV Flagyl. 08/22 Abdominal pain much improved - Switch IV antibiotics to Oral. Chest Pain: Likely secondary to GI etiology from persistent vomiting. CXR w/ no acute findings, possible mild infiltrate, CTA Aorta negative for aneurysm or dissection. Initial trop 0.04, EKG w/ no acute changes. Monitor, place on telemetry, check serial enzymes, pain control. Follow-up next troponin. Elevated troponin: Likely secondary to hypertensive crisis. Cardiology consulted. Appreciate recommendations. Given chest pain however cardiology recommends a stress test. will follow up. 08/21 BP too elevated for any procedures today. 08/22 For nuclear stress test today if bp acceptable. Non-Compliance: Known h/o HTN, not on antihypertensives, non-compliant w/ meds and follow up. Pt counselled. Substance Abuse: h/o substance abuse, currently on Methadone. Tobacco Abuse: Counselled. Ativan/NicoDerm prn if needed. Hypokalemia: K 3.2. Replace orally and monitor. Leukocytosis: Due to colitis. WBC trending down, down to 10.2 K. Continue to monitor CBC with diff. Epigastric pain/nausea: Suspect PUD vs gastritis. GI following. Will need EGD after cleared by cardiology. Pain control w Iv dilaudid. Continue Protonix drip , add Carafate and prn Maalox. DVT Prophylaxis: SCD/Teds. Discharge Planning Continue to monitor in the medical floor. Problem Qualifiers (1) Leukocytosis: Qualified Code: D72.829 - Leukocytosis, unspecified type Willie Briceño MD August 22, 2016 14:31
--- NOTE | 2016-08-22 15:53 | RADRPT ---
EXAM DATE/TIME: 08/22/2016 14:05 [facility] COMPARISON: No previous studies available for comparison. INDICATIONS : Chest pain for 1 day. Ischemic disease and elevated troponins. Angina. DOSE: 25.5 mCi Tc99m Myoview at stress. 8.2 mCi Tc99m Myoview at rest. 0.4 mg Lexiscan STRESS SYMPTOMS: Shortness of breath with nausea. EJECTION FRACTION: > 70% MEDICAL HISTORY : Hypertension. Current smoker. SURGICAL HISTORY : None. ENCOUNTER: Initial ACUITY: 2 days PAIN SCALE: 2/10 LOCATION: Bilateral chest TECHNIQUE: The patient underwent pharmacologic stress with infusion of prescribed dose. Continuous ECG tracing was monitored during stress. Gated SPECT imaging was performed after stress and conventional SPECT i maging was performed at rest. The examination was performed on a SPECT/CT scanner, both attenuation and non-corrected datasets were reviewed. FINDINGS: DISTRIBUTION: The maximum perfused segment at stress is in the septal wall. PERFUSION STUDY: The pattern of perfusion at stress is within normal limits. GATED STUDY: There is intact wall motion and thickening without hypokinetic or dyskinetic segments. CONCLUSION: 1. Unremarkable myocardial perfusion scan. RISK CATEGORY: Low (<1% Annual Mortality Rate) Krunal Caballero MD on August 22, 2016 at 15:51 Board Certified Radiologist. This report was verified electronically.
[2016-08-22] MEDS: HEPARIN-D5W INJ 250 ML IV SCH (16:33)
--- NOTE | 2016-08-22 16:52 | HHI.GIFU ---
Subjective Remarks Pt resting in bed, visiting with family. She says she is still having severe epigastric pain and nausea. She tried to eat regular food yesterday and vomited. Other than that she says she hasn't eaten since she has been here except for popsicles She says has been constipated and she was given miralax yesterday and had a very soft BM. (Bessie Kenny) Objective Vitals I&O Vital Signs Date Time Temp Pulse Resp B/P Pulse Ox O2 Delivery O2 Flow Rate FiO2 08/22/16 16:02 103 08/22/16 15:58 102 08/22/16 15:58 98.9 102 18 156/80 98 08/22/16 15:58 98 Room Air 08/22/16 14:12 98 08/22/16 13:32 18 08/22/16 13:02 87 08/22/16 12:58 83 08/22/16 11:36 99 Room Air 08/22/16 11:36 98.6 78 18 166/83 98 08/22/16 11:36 86 08/22/16 11:33 18 08/22/16 10:20 83 08/22/16 10:15 98.5 68 211/117 99 08/22/16 09:51 75 08/22/16 09:45 98.5 69 197/98 99 08/22/16 08:04 78 08/22/16 07:42 88 08/22/16 07:42 98.6 66 18 150/92 98 08/22/16 07:42 98 Room Air 08/22/16 06:00 86 08/22/16 05:00 82 08/22/16 04:30 82 08/22/16 03:30 98.2 85 16 114/60 98 08/22/16 03:30 99 Room Air 08/22/16 03:30 79 08/22/16 02:26 82 08/22/16 01:47 53 08/22/16 00:00 79 08/21/16 23:20 98.7 74 16 126/64 99 08/21/16 23:20 99 Room Air 08/21/16 23:00 79 08/21/16 22:00 72 08/21/16 21:00 75 08/21/16 20:00 90 08/21/16 19:00 98.5 92 16 116/67 99 08/21/16 19:00 99 Nasal Cannula 2.00 08/21/16 19:00 74 08/21/16 18:00 74 08/21/16 17:00 80 I/O 08/21/16 08/21/16 08/21/16 08/22/16 08/22/16 08/22/16 06:59 14:59 22:59 06:59 14:59 22:59 Intake Total 1717 ml 2608 ml 1079 ml Output Total 1000 ml 1200 ml 800 ml Balance 717 ml 1408 ml 279 ml Intake Oral 240 ml 720 ml 690 ml IV Total 1477 ml 1888 ml 389 ml Output Urine Total 1000 ml 1200 ml 800 ml # Bowel Movements 0 0 0 Laboratory Laboratory Tests Test 08/22/16 08/22/16 05:09 13:20 White Blood Count 10.2 Red Blood Count 4.86 Hemoglobin 11.1 Hematocrit 35.3 Mean Corpuscular Volume 72.5 Mean Corpuscular Hemoglobin 22.7 Mean Corpuscular Hemoglobin 31.4 Concent Red Cell Distribution Width 15.7 Platelet Count 241 Mean Platelet Volume 7.8 Neutrophils (%) (Auto) 44.5 Lymphocytes (%) (Auto) 46.7 Monocytes (%) (Auto) 8.2 Eosinophils (%) (Auto) 0.1 Basophils (%) (Auto) 0.5 Neutrophils # (Auto) 4.5 Lymphocytes # (Auto) 4.7 Monocytes # (Auto) 0.8 Eosinophils # (Auto) 0.0 Basophils # (Auto) 0.1 CBC Comment DIFF FINAL Differential Comment Activated Partial 81.4 Thromboplast Time Sodium Level 142 Potassium Level 3.2 Chloride Level 108 Carbon Dioxide Level 26.6 Anion Gap 7 Blood Urea Nitrogen 8 Creatinine 0.84 Estimat Glomerular Filtration 83 Rate Random Glucose 94 Calcium Level 8.9 Total Bilirubin 0.5 Aspartate Amino Transf 21 (AST/SGOT) Alanine Aminotransferase 35 (ALT/SGPT) Alkaline Phosphatase 73 Total Protein 6.1 Albumin 3.0 Lipase 218 Total Creatine Kinase 48 Troponin I 0.02 Imaging Last Impressions Myocardial Perfusion Scan Nuc Med 08/22/16 0000 Signed Impressions: Service Date/Time: Monday, August 22, 2016 14:05 - CONCLUSION: 1. Unremarkable myocardial perfusion scan. RISK CATEGORY: Low (<1%% Annual Mortality Rate ) Krunal Caballero MD Aorta CTA 08/19/16 2243 Signed Impressions: Service Date/Time: Friday, August 19, 2016 00:05 - CONCLUSION: 1. Negative CTA of the aorta, except for mild atherosclerotic disease. Specifically no aneurysm or dissection. Small hiatal hernia. 2. There is some mild mural thickening of the colon with minimal pericolonic fat stranding near the splenic flexure are most characteristic of a mild colitis. eHnrry Ho MD Chest X-Ray 08/18/16 2225 Signed Impressions: Service Date/Time: Thursday, August 18, 2016 22:36 - CONCLUSION: Early or mild left base pneumonia suspected. Sly Cage MD Head CT 08/18/16 0000 Signed Impressions: Service Date/Time: Friday, August 19, 2016 00:01 - CONCLUSION: Normal examination. Henrry Ho MD Physical Exam HEENT: EOMI; normocephalic; atraumatic; no jaundice. T CHEST: CTA CARDIAC: RRR ABDOMEN: Soft, nondistended, mild epgastric TTP; no hepatosplenomegaly; bowel sounds are present in all four quadrants. EXTREMITIES: No clubbing, cyanosis, or edema. SKIN: Normal; no rash; no jaundice. THREAD SINGER: No focal deficits; alert and oriented times three. (Bessie Kenny) Assessment and Plan Plan ASSESSMENT - Nausea and vomiting, diarrhea - diarrhea improved, pt still with nausea when eating, epigastric discomfort. May need EGD but per cardiology no GI procedures at this time. s/p stress test. Chronic constipation at home Colitis on CTA, possibly constipation induced ischemic colitis Microcytosis, probable iron deficiency - iron studies WNL Hypertension - per cardiology still labile Plan: - Continue Cipro and flagyl - EGD when cleared - await Stool for occult blood - clears This pt seen by myself and Dr Encarnacion and this note is written on his behalf ( Bessie Kenny) Physician Comments Patient seen and examined Agree with above Continue with current supportive care Monitor labs Her main complaint to me today is that of nausea and this may actually be related to some of her pain meds or other meds Awaiting clearance from cardiology to proceed with endoscopy (Juan Encarnacion MD) Bessie Kenny August 22, 2016 16:52 Juan Encarnacion MD August 22, 2016 19:28
[2016-08-22 17:01] LABS: APTT (PATIENT) 42.7 SEC (24.3-30.1)
[2016-08-22] MEDS: CIPROFLOXACIN 500 MG TAB PO SCH (17:25)
[2016-08-22] MEDS: HYDROmorphone HCL PF 1 MG/ML VIAL IV PUSH PRN ×2 (19:39→23:42)
--- NOTE | 2016-08-22 20:06 | EKG ---
Date Performed: 08/22/2016 Time Performed: 11:44:00 PTAGE: 60 years EKG: Sinus rhythm . Left axis REVERSED LEADS Abnormal ECG Compared to prior tracing no significant change DOCTOR: Sue Guillaume Interpretating Date/Time 08/22/2016 20:05:03
[2016-08-23] VITALS (24 sets, daily range): BP systolic 108–178; BP diastolic 60–77; PULSE 68–93; RESP 16–18; TEMP 98.2–99.2; O2SAT 97–100
[2016-08-23] MEDS: HYDROmorphone HCL PF 1 MG/ML VIAL IV PUSH PRN ×5 (03:35→22:09)
[2016-08-23] MEDS: CIPROFLOXACIN 500 MG TAB PO SCH ×2 (04:55→18:39)
[2016-08-23] MEDS: METOPROLOL TARTRATE 25 MG TAB PO SCH ×2 (04:55→17:16)
[2016-08-23] MEDS: metroNIDAZOLE 500 MG TAB PO SCH ×3 (04:56→20:17)
[2016-08-23 06:19] LABS: BASOPHIL % 0.3 % (0.0-2.0); HEMATOCRIT 36.3 % (35.0-46.0); HEMO FLAGS DIFF FINAL; LYMPH % 46.1 % (9.0-44.0); MEAN CELL VOLUME 73.1 FL (80.0-100.0); MEAN CORPUSCULAR HGB CONC 31.4 % (32.0-36.0); NEUT % 45.6 % (16.0-70.0); PLATELET COUNT 252 TH/MM3 (150-450); RED BLOOD COUNT 4.97 MIL/MM3 (4.00-5.30); RED CELL DISTRIBUTION WIDTH 15.9 % (11.6-17.2); WHITE BLOOD COUNT 8.8 TH/MM3 (4.0-11.0)
[2016-08-23 06:49] LABS: ALKALINE PHOSPHATASE 74 U/L (45-117); ALT (GPT) 37 U/L (10-53); ANION GAP 11 MEQ/L (5-15); AST (GOT) 22 U/L (15-37); BICARBONATE 24.8 MEQ/L (21.0-32.0); BLOOD UREA NITROGEN 10 MG/DL (7-18); CHLORIDE 103 MEQ/L (98-107); GLOMERULAR FILTRATION RATE 83 ML/MIN (>89); SODIUM (NA) 139 MEQ/L (136-145); TOTAL BILIRUBIN ADULT 0.5 MG/DL (0.2-1.0)
--- NOTE | 2016-08-23 07:12 | PD.CARD.PN ---
Subjective Subjective Remarks PT without CV complaints Objective Medications Current Medications Medications (Trade) Dose Ordered Sig/Kimberley Route Start Time Stop Time Status Last Admin (NS Flush) 2 ml UNSCH PRN IV FLUSH 08/19/16 05:30 (NS Flush) 2 ml BID IV FLUSH 08/19/16 09:00 08/22/16 19:39 (Zofran Inj) 4 mg Q6H PRN IVP 08/19/16 05:30 08/22/16 22:34 (Dulcolax Supp) 10 mg DAILY PRN RECTAL 08/19/16 05:30 (Tylenol) 650 mg Q6H PRN PO 08/19/16 05:30 08/21/16 15:41 (Morphine Inj) 2 mg Q3H PRN IV 08/19/16 05:30 08/20/16 07:33 (Morphine Inj) 4 mg Q3H PRN IV 08/19/16 05:30 08/22/16 11:28 (Vasotec Inj) 1.25 mg Q6H PRN IV PUSH 08/19/16 09:15 08/22/16 10:35 (Trandate Inj) 10 mg Q4H PRN IV PUSH 08/19/16 13:45 08/22/16 09:43 (Aspirin) 325 mg DAILY PO 08/20/16 16:45 08/22/16 08:08 Polyethylene Glycol 17 gm 17 gm BID PO 08/20/16 21:00 08/22/16 08:08 (Protonix Inj/NS Inj) 100 ml @ 10 mls/hr Q10H IV 08/20/16 19:30 08/22/16 21:30 (Compazine Inj) 10 mg Q6H PRN IV PUSH 08/20/16 23:00 08/20/16 23:16 (Prinivil) 40 mg DAILY PO 08/22/16 09:00 08/22/16 08:08 (Apresoline Inj) 10 mg Q30M PRN IV PUSH 08/21/16 13:45 08/22/16 12:56 (Lopressor) 50 mg Q12H PO 08/21/16 17:00 08/23/16 04:55 (K-Lyte Cl Eff) 25 meq DAILY NG 08/22/16 09:00 08/22/16 08:24 (Cipro) 500 mg Q12H PO 08/22/16 18:00 08/23/16 04:55 (Flagyl) 500 mg Q8HR PO 08/22/16 14:00 08/23/16 04:56 (Carafate Liq) 1 gm ACHS PO 08/23/16 16:00 (Mag-Al Plus Susp Liq) 30 ml Q6H PRN PO 08/22/16 11:15 (Cardura) 2 mg DAILY PO 08/23/16 09:00 (Dilaudid Pf Inj) 1 mg Q4H PRN IV PUSH 08/22/16 16:00 08/23/16 03:35 Vital Signs / I&O Vital Signs Date Time Temp Pulse Resp B/P Pulse Ox O2 Delivery O2 Flow Rate FiO2 08/23/16 06:00 75 08/23/16 05:00 88 08/23/16 04:10 98 Room Air 08/23/16 04:00 92 08/23/16 04:00 98.3 84 18 121/63 97 08/23/16 03:00 88 08/23/16 02:00 88 08/23/16 02:00 90 08/23/16 01:00 88 08/23/16 00:00 93 08/23/16 00:00 98.9 93 18 178/77 98 08/22/16 23:50 98 Room Air 08/22/16 23:00 82 08/22/16 22:00 82 08/22/16 21:00 88 08/22/16 20:05 98 Room Air 08/22/16 20:00 83 08/22/16 20:00 98.3 85 18 150/88 98 08/22/16 19:00 86 08/22/16 18:16 81 08/22/16 17:06 78 08/22/16 16:54 18 08/22/16 16:02 103 08/22/16 15:58 102 08/22/16 15:58 98.9 102 18 156/80 98 08/22/16 15:58 98 Room Air 08/22/16 14:12 98 08/22/16 13:32 18 08/22/16 13:02 87 08/22/16 12:58 83 08/22/16 11:36 99 Room Air 08/22/16 11:36 98.6 78 18 166/83 98 08/22/16 11:36 86 08/22/16 11:33 18 08/22/16 10:20 83 08/22/16 10:15 98.5 68 211/117 99 08/22/16 09:51 75 08/22/16 09:45 98.5 69 197/98 99 08/22/16 08:04 78 08/22/16 07:42 88 08/22/16 07:42 98.6 66 18 150/92 98 08/22/16 07:42 98 Room Air I/O 08/22/16 08/22/16 08/22/16 08/23/16 08/23/16 08/23/16 07:00 15:00 23:00 07:00 15:00 23:00 Intake Total 1079 ml 640 ml 240 ml Output Total 800 ml 300 ml Balance 279 ml 640 ml -60 ml Intake Oral 690 ml 640 ml 240 ml IV Total 389 ml Output Urine Total 800 ml 300 ml # Voids 4 # Bowel Movements 0 2 Physical Exam GENERAL: Well developed, well nourished. No acute distress. HEENT: Jugular venous pressure is normal. CHEST: Lungs clear to auscultation bilaterally. Unlabored respiratory effort. CARDIAC: Regular rate and rhythm without S3, S4, or murmur. ABDOMEN: Soft, nontender, no hepatosplenomegaly. Bowel sounds present. EXTREMITIES: No clubbing, cyanosis, or edema. Laboratory Laboratory Tests Test 08/22/16 08/22/16 08/23/16 13:20 15:54 04:40 Total Creatine Kinase 48 U/L Troponin I 0.02 NG/ML Activated Partial 42.7 SEC Thromboplast Time White Blood Count 8.8 TH/MM3 Red Blood Count 4.97 MIL/MM3 Hemoglobin 11.4 GM/DL Hematocrit 36.3 % Mean Corpuscular Volume 73.1 FL Mean Corpuscular Hemoglobin 23.0 PG Mean Corpuscular Hemoglobin 31.4 % Concent Red Cell Distribution Width 15.9 % Platelet Count 252 TH/MM3 Mean Platelet Volume 8.1 FL Neutrophils (%) (Auto) 45.6 % Lymphocytes (%) (Auto) 46.1 % Monocytes (%) (Auto) 8.0 % Eosinophils (%) (Auto) 0.0 % Basophils (%) (Auto) 0.3 % Neutrophils # (Auto) 4.0 TH/MM3 Lymphocytes # (Auto) 4.0 TH/MM3 Monocytes # (Auto) 0.7 TH/MM3 Eosinophils # (Auto) 0.0 TH/MM3 Basophils # (Auto) 0.0 TH/MM3 CBC Comment DIFF FINAL Differential Comment Sodium Level 139 MEQ/L Potassium Level 3.0 MEQ/L Chloride Level 103 MEQ/L Carbon Dioxide Level 24.8 MEQ/L Anion Gap 11 MEQ/L Blood Urea Nitrogen 10 MG/DL Creatinine 0.84 MG/DL Estimat Glomerular Filtration 83 ML/MIN Rate Random Glucose 95 MG/DL Calcium Level 9.0 MG/DL Total Bilirubin 0.5 MG/DL Aspartate Amino Transf 22 U/L (AST/SGOT) Alanine Aminotransferase 37 U/L (ALT/SGPT) Alkaline Phosphatase 74 U/L Total Protein 6.4 GM/DL Albumin 3.0 GM/DL Imaging Last 72 hours Impressions Myocardial Perfusion Scan Nuc Med 08/22/16 0000 Signed Impressions: Service Date/Time: Monday, August 22, 2016 14:05 - CONCLUSION: 1. Unremarkable myocardial perfusion scan. RISK CATEGORY: Low (<1%% Annual Mortality Rate ) Krunal Caballero MD Assessment and Plan Assessment and Plan Hypertensive crisis - BP better controlled, change lisinopril to Q12 for better coverage -Lability secondary to pain- direct correlation per pt Elevated troponin - this is most likely secondary to her hypertensive crisis. -kimani nuc stress= normal hypokalemia- potassium prior to nuc GI- reasonable to go ahead with pandoscopy, relatively low risk with BP controlled Available PRN Smoking - the patient was counseled to quit. Maria Luz Mercer MD August 23, 2016 07:11
[2016-08-23] MEDS: SODIUM CHLORIDE 0.9% FLUSH 10 ML FLUSH IV FLUSH SCH ×2 (07:51→20:18)
[2016-08-23] MEDS: ASPIRIN 325 MG TAB PO SCH (09:01)
[2016-08-23] MEDS: LISINOPRIL 20 MG TAB PO SCH ×2 (09:01→20:17)
[2016-08-23] MEDS: DOXAZOSIN MESYLATE 2 MG TAB PO SCH (09:01)
[2016-08-23] MEDS: POTASSIUM CHLORIDE 25 MEQ EFFERVESCENT TAB NG SCH (09:02)
[2016-08-23] MEDS: POLYETHYLENE GLYCOL 17 GM PKG PO SCH ×2 (09:02→20:17)
--- NOTE | 2016-08-23 09:12 | PD.PN.STU ---
Subjective Remarks feeling much better, no abdominal pain small BM this morning, passing gas no complaints BP doing better Objective Vitals ENERAL: Middle-aged black female in no distress, alert/awake/oriented x3 HEENT: PERRLA, EOMI. No scleral icterus or conjunctival pallor. No lid lag or facial droop. CARDIOVASCULAR: Regular rate and rhythm. No obvious murmurs to auscultation. No chest tenderness to palpation. RESPIRATORY: No obvious rhonchi or wheezing. Clear to auscultation. Breath sounds equal bilaterally. GASTROINTESTINAL: Abdomen soft, nondistended, nontender to palpation. BS normal. MUSCULOSKELETAL: Extremities without clubbing, cyanosis, or edema. No obvious deformities. Vital Signs Date Time Temp Pulse Resp B/P Pulse Ox O2 Delivery O2 Flow Rate FiO2 08/23/16 06:00 75 08/23/16 05:00 88 08/23/16 04:10 98 Room Air 08/23/16 04:00 92 08/23/16 04:00 98.3 84 18 121/63 97 08/23/16 03:00 88 08/23/16 02:00 88 08/23/16 02:00 90 08/23/16 01:00 88 08/23/16 00:00 93 08/23/16 00:00 98.9 93 18 178/77 98 08/22/16 23:50 98 Room Air 08/22/16 23:00 82 08/22/16 22:00 82 08/22/16 21:00 88 08/22/16 20:05 98 Room Air 08/22/16 20:00 83 08/22/16 20:00 98.3 85 18 150/88 98 08/22/16 19:00 86 08/22/16 18:16 81 08/22/16 17:06 78 08/22/16 16:54 18 08/22/16 16:02 103 08/22/16 15:58 102 08/22/16 15:58 98.9 102 18 156/80 98 08/22/16 15:58 98 Room Air 08/22/16 14:12 98 08/22/16 13:32 18 08/22/16 13:02 87 08/22/16 12:58 83 08/22/16 11:36 99 Room Air 08/22/16 11:36 98.6 78 18 166/83 98 08/22/16 11:36 86 08/22/16 11:33 18 08/22/16 10:20 83 08/22/16 10:15 98.5 68 211/117 99 08/22/16 09:51 75 08/22/16 09:45 98.5 69 197/98 99 I/O 08/22/16 08/22/16 08/22/16 08/23/16 08/23/16 08/23/16 07:00 15:00 23:00 07:00 15:00 23:00 Intake Total 1079 ml 640 ml 240 ml Output Total 800 ml 300 ml Balance 279 ml 640 ml -60 ml Intake Oral 690 ml 640 ml 240 ml IV Total 389 ml Output Urine Total 800 ml 300 ml # Voids 4 # Bowel Movements 0 2 Result Diagram: 08/23/1643908/23/16 0440 A/P Assessment and Plan Hypertensive emergency-h/o HTN, Non-compliant w/ medications. Headache likely secondary to hypertensive emergency On arrival, BP 230's systolic, s/p Labetalol 20mg IV x1 in ER, repeat BP 190's-likely compounded by c/o abdominal pain and persistent nausea/vomiting. Blood pressure better, presently on nitro drip. CT Head w/ no acute findings. Started on lisinopril and metoprolol. 08/20 Patient's bp low today, bp meds held in am, ordered 500 ml IV bolus, bp improving. Continue to monitor vital signs. 08/21 BP very uncontrolled - restarted on nitroglycerin drip. I will resume home antihypertensive medications and increase metoprolol dose to 50 mg by mouth every 12 hours. I will also add hydralazine 10 mg IV push every 30 minutes as needed for systolic blood pressure more than 160 and will start Doxazosin at bedtime. Titrate Nitro glycerin drip to off. 08/22 patient's blood pressure better this a.m, patient's nitroglycerin discontinued by cardiology. However patient with increased epigastric pain and now with worsening blood pressure up to systolic blood pressure of 200 as per RN. I will give an extra dose of 2 mg of Zosyn by mouth once and will also give a dose of IV Dilaudid to control pain which could be contributing to the uncontrolled blood pressure. 08/23 BP controlled Colitis- Likely acute gastroenteritis, Patient states had diarrhea prior to admission along with nausea and vomiting. only started this morning.CTA Aorta w / mild colitis, images reviewed by me, in light of persistent symptoms and elevated neutrophil count Patient was started on IV Ciprofloxacin and IV Flagyl. IVF for hydration. Full liquid diet. 08/20 Patient's abdominal pain improving. No further diarrhea, nausea/vomiting. Continue IV antibiotics. Will advance diet to regular diet. 08/21 patient is tolerating regular diet. Continue IV Cipro Floxin and IV Flagyl. 08/22 Abdominal pain much improved - Switch IV antibiotics to Oral. 08/23 Abdominal pain resolved, passing gas, small BM this AM, continue antibiotics Chest Pain: Likely secondary to GI etiology from persistent vomiting. CXR w/ no acute findings, possible mild infiltrate, CTA Aorta negative for aneurysm or dissection. Initial trop 0.04, EKG w/ no acute changes. Monitor, place on telemetry, check serial enzymes, pain control. Follow-up next troponin. Elevated troponin: Likely secondary to hypertensive crisis. Cardiology consulted. Appreciate recommendations. Given chest pain however cardiology recommends a stress test. will follow up. 08/21 BP too elevated for any procedures today. 08/22 For nuclear stress test today if bp acceptable. 08/23 stress test normal Non-Compliance: Known h/o HTN, not on antihypertensives, non-compliant w/ meds and follow up. Pt counselled. Substance Abuse: h/o substance abuse, currently on Methadone. Tobacco Abuse: Counselled. Ativan/NicoDerm prn if needed. Hypokalemia: K 3.2. Replace orally and monitor. 08/23 3.0 continue to replace orally Leukocytosis: Due to colitis. WBC trending down, down to 10.2 K. Continue to monitor CBC with diff. 08/23 trending down to 8.8 Epigastric pain/nausea: Suspect PUD vs gastritis. GI following. Will need EGD after cleared by cardiology. Pain control w Iv dilaudid. Continue Protonix drip , add Carafate and prn Maalox. Pain resolved. DVT Prophylaxis: SCD/Teds. Discharge Planning Continue to monitor in the medical floor. Elmer Villanueva August 23, 2016 09:12
--- NOTE | 2016-08-23 14:50 | HHI.GIFU ---
Subjective Remarks Pt OOB to chair, feeling better. N/v improved. Still has epigastric discomfort. Denies every having diarrhea, says she is usually constipated. ( Bessie Kenny) Objective Vitals I&O Vital Signs Date Time Temp Pulse Resp B/P Pulse Ox O2 Delivery O2 Flow Rate FiO2 08/23/16 13:00 83 08/23/16 12:00 70 08/23/16 11:00 78 08/23/16 11:00 98.3 78 18 111/60 98 08/23/16 11:00 98 Room Air 08/23/16 10:00 77 08/23/16 09:00 78 08/23/16 08:00 80 08/23/16 07:00 78 08/23/16 07:00 99.2 80 16 108/66 08/23/16 07:00 98 Room Air 08/23/16 06:00 75 08/23/16 05:00 88 08/23/16 04:10 98 Room Air 08/23/16 04:00 92 08/23/16 04:00 98.3 84 18 121/63 97 08/23/16 03:00 88 08/23/16 02:00 88 08/23/16 02:00 90 08/23/16 01:00 88 08/23/16 00:00 93 08/23/16 00:00 98.9 93 18 178/77 98 08/22/16 23:50 98 Room Air 08/22/16 23:00 82 08/22/16 22:00 82 08/22/16 21:00 88 08/22/16 20:05 98 Room Air 08/22/16 20:00 83 08/22/16 20:00 98.3 85 18 150/88 98 08/22/16 19:00 86 08/22/16 18:16 81 08/22/16 17:06 78 08/22/16 16:54 18 08/22/16 16:02 103 08/22/16 15:58 102 08/22/16 15:58 98.9 102 18 156/80 98 08/22/16 15:58 98 Room Air I/O 08/22/16 08/22/16 08/22/16 08/23/16 08/23/16 08/23/16 07:00 15:00 23:00 07:00 15:00 23:00 Intake Total 1079 ml 640 ml 240 ml Output Total 800 ml 300 ml Balance 279 ml 640 ml -60 ml Intake Oral 690 ml 640 ml 240 ml IV Total 389 ml Output Urine Total 800 ml 300 ml # Voids 4 # Bowel Movements 0 2 Laboratory Laboratory Tests Test 08/22/16 08/23/16 15:54 04:40 Activated Partial 42.7 Thromboplast Time White Blood Count 8.8 Red Blood Count 4.97 Hemoglobin 11.4 Hematocrit 36.3 Mean Corpuscular Volume 73.1 Mean Corpuscular Hemoglobin 23.0 Mean Corpuscular Hemoglobin 31.4 Concent Red Cell Distribution Width 15.9 Platelet Count 252 Mean Platelet Volume 8.1 Neutrophils (%) (Auto) 45.6 Lymphocytes (%) (Auto) 46.1 Monocytes (%) (Auto) 8.0 Eosinophils (%) (Auto) 0.0 Basophils (%) (Auto) 0.3 Neutrophils # (Auto) 4.0 Lymphocytes # (Auto) 4.0 Monocytes # (Auto) 0.7 Eosinophils # (Auto) 0.0 Basophils # (Auto) 0.0 CBC Comment DIFF FINAL Differential Comment Sodium Level 139 Potassium Level 3.0 Chloride Level 103 Carbon Dioxide Level 24.8 Anion Gap 11 Blood Urea Nitrogen 10 Creatinine 0.84 Estimat Glomerular Filtration 83 Rate Random Glucose 95 Calcium Level 9.0 Total Bilirubin 0.5 Aspartate Amino Transf 22 (AST/SGOT) Alanine Aminotransferase 37 (ALT/SGPT) Alkaline Phosphatase 74 Total Protein 6.4 Albumin 3.0 Imaging Last Impressions Myocardial Perfusion Scan Nuc Med 08/22/16 0000 Signed Impressions: Service Date/Time: Monday, August 22, 2016 14:05 - CONCLUSION: 1. Unremarkable myocardial perfusion scan. RISK CATEGORY: Low (<1%% Annual Mortality Rate ) Krunal Caballero MD Aorta CTA 08/19/16 2243 Signed Impressions: Service Date/Time: Friday, August 19, 2016 00:05 - CONCLUSION: 1. Negative CTA of the aorta, except for mild atherosclerotic disease. Specifically no aneurysm or dissection. Small hiatal hernia. 2. There is some mild mural thickening of the colon with minimal pericolonic fat stranding near the splenic flexure are most characteristic of a mild colitis. Henrry Ho MD Chest X-Ray 08/18/168 Signed Impressions: Service Date/Time: Thursday, August 18, 2016 22:36 - CONCLUSION: Early or mild left base pneumonia suspected. Sly Cage MD Head CT 08/18/16 0000 Signed Impressions: Service Date/Time: Friday, August 19, 2016 00:01 - CONCLUSION: Normal examination. Henrry Ho MD Physical Exam HEENT: EOMI; normocephalic; atraumatic; no jaundice. CHEST: CTA CARDIAC: RRR ABDOMEN: Soft, nondistended, mild epgastric TTP; no hepatosplenomegaly; bowel sounds are present in all four quadrants. EXTREMITIES: No clubbing, cyanosis, or edema. SKIN: Normal; no rash; no jaundice. BARREL TURNER: No focal deficits; alert and oriented times three. (Bessie Kenny) Assessment and Plan Plan ASSESSMENT - Nausea and vomiting- n/v improved but pt still with epigastric discomfort. s /p stress test, unremarkable. Pt cleared for endoscopy by cardiology, low risk. Chronic constipation at home Colitis on CTA, possibly constipation induced ischemic colitis Microcytosis, probable iron deficiency - iron studies WNL Plan: - EGD tomorrow - obtain consents - NPO after midnight - JOSSELYN This pt seen by myself and Dr Encarnacion and this note is written on his behalf ( Bessie Kenny) Physician Comments Patient seen and examined Agree with above Continue with current supportive care Monitor labs EGD tomorrow (Juan Encarnacion MD) Bessie Kenny August 23, 2016 14:50 Juan Encarnacion MD August 23, 2016 17:48
--- NOTE | 2016-08-23 15:42 | HHI.PR ---
Subjective Remarks deferred entry - patient seen earlier at 12:30 Patient states had epigastric pain earlier but now much improved denies cp/sob bp much better Objective Vitals Vital Signs Date Time Temp Pulse Resp B/P Pulse Ox O2 Delivery O2 Flow Rate FiO2 08/23/16 13:00 83 08/23/16 12:00 70 08/23/16 11:00 78 08/23/16 11:00 98.3 78 18 111/60 98 08/23/16 11:00 98 Room Air 08/23/16 10:00 77 08/23/16 09:00 78 08/23/16 08:00 80 08/23/16 07:00 78 08/23/16 07:00 99.2 80 16 108/66 08/23/16 07:00 98 Room Air 08/23/16 06:00 75 08/23/16 05:00 88 08/23/16 04:10 98 Room Air 08/23/16 04:00 92 08/23/16 04:00 98.3 84 18 121/63 97 08/23/16 03:00 88 08/23/16 02:00 88 08/23/16 02:00 90 08/23/16 01:00 88 08/23/16 00:00 93 08/23/16 00:00 98.9 93 18 178/77 98 08/22/16 23:50 98 Room Air 08/22/16 23:00 82 08/22/16 22:00 82 08/22/16 21:00 88 08/22/16 20:05 98 Room Air 08/22/16 20:00 83 08/22/16 20:00 98.3 85 18 150/88 98 08/22/16 19:00 86 08/22/16 18:16 81 08/22/16 17:06 78 08/22/16 16:54 18 08/22/16 16:02 103 08/22/16 15:58 102 08/22/16 15:58 98.9 102 18 156/80 98 08/22/16 15:58 98 Room Air I/O 08/22/16 08/22/16 08/22/16 08/23/16 08/23/16 08/23/16 07:00 15:00 23:00 07:00 15:00 23:00 Intake Total 1079 ml 640 ml 240 ml Output Total 800 ml 300 ml Balance 279 ml 640 ml -60 ml Intake Oral 690 ml 640 ml 240 ml IV Total 389 ml Output Urine Total 800 ml 300 ml # Voids 4 # Bowel Movements 0 2 Result Diagram: 08/23/16 0440 08/23/16 0440 Imaging Last Impressions Myocardial Perfusion Scan Nuc Med 08/22/16 0000 Signed Impressions: Service Date/Time: Monday, August 22, 2016 14:05 - CONCLUSION: 1. Unremarkable myocardial perfusion scan. RISK CATEGORY: Low (<1%% Annual Mortality Rate ) Krunal Caballero MD Aorta CTA 08/19/16 2243 Signed Impressions: Service Date/Time: Friday, August 19, 2016 00:05 - CONCLUSION: 1. Negative CTA of the aorta, except for mild atherosclerotic disease. Specifically no aneurysm or dissection. Small hiatal hernia. 2. There is some mild mural thickening of the colon with minimal pericolonic fat stranding near the splenic flexure are most characteristic of a mild colitis. Henrry Ho MD Chest X-Ray 08/18/165 Signed Impressions: Service Date/Time: Thursday, August 18, 2016 22:36 - CONCLUSION: Early or mild left base pneumonia suspected. Sly Cage MD Head CT 08/18/16 0000 Signed Impressions: Service Date/Time: Friday, August 19, 2016 00:01 - CONCLUSION: Normal examination. Henrry Ho MD Objective Remarks GENERAL: Middle-aged black female in [facility]. HEENT: PERRLA, EOMI. No scleral icterus or conjunctival pallor. No lid lag or facial droop. CARDIOVASCULAR: Regular rate and rhythm. No obvious murmurs to auscultation. No chest tenderness to palpation. RESPIRATORY: No obvious rhonchi or wheezing. Clear to auscultation. Breath sounds equal bilaterally. GASTROINTESTINAL: Abdomen soft, mild tenderness to palpation in epigastric region, nondistended. BS normal. MUSCULOSKELETAL: Extremities without clubbing, cyanosis, or edema. No obvious deformities. NEUROLOGICAL: Awake, alert and oriented x4. No focal neurologic deficits. Moving both upper and lower extremities spontaneously. Procedures none Medications and IVs Current Medications Medications (Trade) Dose Ordered Sig/Kimberley Route Start Time Stop Time Status Last Admin (NS Flush) 2 ml UNSCH PRN IV FLUSH 08/19/16 05:30 (NS Flush) 2 ml BID IV FLUSH 08/19/16 09:00 08/23/16 07:51 (Zofran Inj) 4 mg Q6H PRN IVP 08/19/16 05:30 08/22/16 22:34 (Dulcolax Supp) 10 mg DAILY PRN RECTAL 08/19/16 05:30 (Tylenol) 650 mg Q6H PRN PO 08/19/16 05:30 08/21/16 15:41 (Morphine Inj) 2 mg Q3H PRN IV 08/19/16 05:30 08/20/16 07:33 (Morphine Inj) 4 mg Q3H PRN IV 08/19/16 05:30 08/22/16 11:28 (Vasotec Inj) 1.25 mg Q6H PRN IV PUSH 08/19/16 09:15 08/22/16 10:35 (Trandate Inj) 10 mg Q4H PRN IV PUSH 08/19/16 13:45 08/22/16 09:43 (Aspirin) 325 mg DAILY PO 08/20/16 16:45 08/23/16 09:01 Polyethylene Glycol 17 gm 17 gm BID PO 08/20/16 21:00 08/23/16 09:02 (Protonix Inj/NS Inj) 100 ml @ 10 mls/hr Q10H IV 08/20/16 19:30 08/22/16 21:30 (Compazine Inj) 10 mg Q6H PRN IV PUSH 08/20/16 23:00 08/20/16 23:16 (Apresoline Inj) 10 mg Q30M PRN IV PUSH 08/21/16 13:45 08/22/16 12:56 (Lopressor) 50 mg Q12H PO 08/21/16 17:00 08/23/16 04:55 (K-Lyte Cl Eff) 25 meq DAILY NG 08/22/16 09:00 08/23/16 09:02 (Cipro) 500 mg Q12H PO 08/22/16 18:00 08/23/16 04:55 (Flagyl) 500 mg Q8HR PO 08/22/16 14:00 08/23/16 14:46 (Carafate Liq) 1 gm ACHS PO 08/23/16 16:00 (Mag-Al Plus Susp Liq) 30 ml Q6H PRN PO 08/22/16 11:15 (Cardura) 2 mg DAILY PO 08/23/16 09:00 08/23/16 09:01 (Dilaudid Pf Inj) 1 mg Q4H PRN IV PUSH 08/22/16 16:00 08/23/16 12:09 (Prinivil) 20 mg Q12HR PO 08/23/16 09:00 08/23/16 09:01 Urinary Catheter: No Vascular Central Line Catheter: No A/P Problem List: (1) Hypertensive urgency ICD Code: I16.0 Status: Resolved (2) Intractable nausea and vomiting ICD Code: R11.2 Status: Resolved (3) Colitis ICD Code: K52.9 Status: Acute (4) Chest pain ICD Code: R07.9 Status: Resolved (5) Non-compliance ICD Code: Z91.19 Status: Acute (6) Substance abuse ICD Code: F19.10 Status: Chronic (7) Tobacco abuse ICD Code: Z72.0 Status: Chronic (8) Diarrhea ICD Code: R19.7 Status: Resolved (9) Leukocytosis ICD Code: D72.829 Status: Resolved Assessment and Plan This is a 60-year-old female with previous history of substance abuse and noncompliance admitted for headache, abdominal pain and nausea, vomiting and diarrhea. Hypertensive emergency-h/o HTN, Non-compliant w/ medications. Headache likely secondary to hypertensive emergency On arrival, BP 230's systolic, s/p Labetalol 20mg IV x1 in ER, repeat BP 190's-likely compounded by c/o abdominal pain and persistent nausea/vomiting. Blood pressure better, presently on nitro drip. CT Head w/ no acute findings. Started on lisinopril and metoprolol. His blood pressure became low on 08/20 to which antihypertensive medications were held and patient was treated with 200 mL of IV bolus with improvement of the patient's blood pressure. The patient then became very controlled on 08/21 and micturition drip was restarted on the night of 08/20. Metoprolol dose was increased to 50 mg every 12 hours on 08/21 and hydralazine IV was added as needed for hypertension. Patient was started on doxazosin. Hypertensive emergency resolved by 08/22, however the patient required an extra dose of Cardura to control bp. 08/23 patient's blood pressure improved, the patient was started on lisinopril 20 mg by mouth every 12 hours. Continue to monitor vital signs. Colitis- Likely acute gastroenteritis, Patient states had diarrhea prior to admission along with nausea and vomiting. only started this morning.CTA Aorta w / mild colitis, images reviewed by me, in light of persistent symptoms and elevated neutrophil count Patient was started on IV Ciprofloxacin and IV Flagyl. IVF for hydration. Full liquid diet. IV antibiotics Dc'd on 08/22. Continue oral Ciprofloxacin and Flagyl. Chest Pain: Likely secondary to GI etiology from persistent vomiting. CXR w/ no acute findings, possible mild infiltrate, CTA Aorta negative for aneurysm or dissection. Initial trop 0.04, EKG w/ no acute changes. Monitor, place on telemetry, check serial enzymes, pain control. Follow-up next troponin. Elevated troponin: Likely secondary to hypertensive crisis. Cardiology consulted. Appreciate recommendations. Given chest pain however cardiology recommends a stress test. will follow up. Negative nuclear stress test. Non-Compliance: Known h/o HTN, not on antihypertensives, non-compliant w/ meds and follow up. Pt counselled. Substance Abuse: h/o substance abuse, currently on Methadone. Tobacco Abuse: Counselled. Ativan/NicoDerm prn if needed. Hypokalemia: K 3.0. Replace orally and monitor. Leukocytosis: Due to colitis. WBC continues to trend down. Continue to monitor CBC with diff. Epigastric pain/nausea: Suspect PUD vs gastritis. GI following. Will need EGD after cleared by cardiology. Pain control w Iv dilaudid. Continue Protonix drip , add Carafate and prn Maalox. for EGD/colonoscopy in am. DVT Prophylaxis: SCD/Teds. Discharge Planning Continue to monitor in the medical floor. Problem Qualifiers (1) Leukocytosis: Qualified Code: D72.829 - Leukocytosis, unspecified type Willie Briceño MD August 23, 2016 15:42
[2016-08-23] MEDS ORDERED: POTASSIUM CHLORIDE 10 MEQ CONTROLLED RELEASE TAB PO ONE (15:45)
[2016-08-23] MEDS: SUCRALFATE 1 GM/10 ML CUP PO SCH ×2 (17:17→20:17)
[2016-08-23] MEDS: PANTOPRAZOLE 80 MG/100 ML NS IV SCH ×2 (17:34)
[2016-08-24] VITALS (17 sets, daily range): BP systolic 131–159; BP diastolic 72–87; PULSE 68–99; RESP 16–20; TEMP 98–98.6; O2SAT 96–100
[2016-08-24] MEDS ORDERED: TEMAZEPAM 7.5 MG CAP PO ONE (00:15)
[2016-08-24] MEDS: PANTOPRAZOLE 80 MG/100 ML NS IV SCH ×2 (03:30)
[2016-08-24] MEDS: metroNIDAZOLE 500 MG TAB PO SCH ×2 (05:31→13:55)
[2016-08-24] MEDS: METOPROLOL TARTRATE 25 MG TAB PO SCH (05:31)
[2016-08-24] MEDS: SUCRALFATE 1 GM/10 ML CUP PO SCH ×2 (05:31→12:36)
[2016-08-24] MEDS: CIPROFLOXACIN 500 MG TAB PO SCH (05:31)
[2016-08-24 06:38] LABS: BICARBONATE 26.3 MEQ/L (21.0-32.0); POTASSIUM 3.5 MEQ/L (3.5-5.1)
[2016-08-24] MEDS: SODIUM CHLORIDE 0.9% FLUSH 10 ML FLUSH IV FLUSH SCH (08:15)
[2016-08-24] MEDS: ASPIRIN 325 MG TAB PO SCH (08:15)
[2016-08-24] MEDS: DOXAZOSIN MESYLATE 2 MG TAB PO SCH (08:16)
[2016-08-24] MEDS: POLYETHYLENE GLYCOL 17 GM PKG PO SCH (08:16)
[2016-08-24] MEDS: POTASSIUM CHLORIDE 25 MEQ EFFERVESCENT TAB NG SCH (08:16)
[2016-08-24] MEDS: LISINOPRIL 20 MG TAB PO SCH (08:17)
[2016-08-24] MEDS: HYDROmorphone HCL PF 1 MG/ML VIAL IV PUSH PRN (08:59)
--- NOTE | 2016-08-24 09:10 | PD.PN.STU ---
Subjective Remarks abdominal pain slightly improved BP under control having BMs appetite is good slept well with Restoril denies CP, SOB, n/v EGD scheduled this morning Objective Vitals GENERAL: Pleasant middle-aged black female in no acute distress, is alert/awake/ oriented x3 HEENT: PERRLA, EOMI. No scleral icterus or conjunctival pallor. No lid lag or facial droop. CARDIOVASCULAR: Regular rate and rhythm. No obvious murmurs to auscultation. No chest tenderness to palpation. RESPIRATORY: No obvious rhonchi or wheezing. Clear to auscultation. Breath sounds equal bilaterally. GASTROINTESTINAL: Abdomen soft, mild tenderness to palpation in epigastric region, nondistended. BS normal. MUSCULOSKELETAL: Extremities without clubbing, cyanosis, or edema. No obvious deformities. Vital Signs Date Time Temp Pulse Resp B/P Pulse Ox O2 Delivery O2 Flow Rate FiO2 08/24/16 08:00 98.6 70 18 159/87 100 08/24/16 06:04 76 08/24/16 05:00 78 08/24/16 04:05 78 08/24/16 03:28 80 08/24/16 03:08 Room Air 08/24/16 03:00 98.5 77 155/72 97 08/24/16 02:00 84 08/24/16 01:00 96 08/24/16 00:05 Room Air 08/24/16 00:00 74 08/23/16 23:00 75 08/23/16 23:00 98.6 82 127/70 100 08/23/16 22:00 84 08/23/16 21:00 72 08/23/16 20:00 90 08/23/16 19:00 68 08/23/16 19:00 98.2 81 108/60 98 08/23/16 19:00 Room Air 08/23/16 18:43 70 08/23/16 17:00 69 08/23/16 16:00 71 08/23/16 16:00 98 Room Air 08/23/16 15:00 86 08/23/16 15:00 98.6 86 120/72 08/23/16 14:00 81 08/23/16 13:00 83 08/23/16 12:00 70 08/23/16 11:00 78 08/23/16 11:00 98.3 78 18 111/60 98 08/23/16 11:00 98 Room Air 08/23/16 10:00 77 I/O 08/23/16 08/23/16 08/23/16 08/24/16 08/24/16 08/24/16 07:00 15:00 23:00 07:00 15:00 23:00 Intake Total 240 ml 620 ml 720 ml Output Total 300 ml 401 ml Balance -60 ml 219 ml 720 ml Intake Oral 240 ml 620 ml 720 ml Output Urine Total 300 ml 400 ml Stool Total 1 ml # Voids 4 3 Result Diagram: 08/23/16 0440 08/24/16 0456 A/P Assessment and Plan Hypertensive emergency-h/o HTN, Non-compliant w/ medications. Headache likely secondary to hypertensive emergency On arrival, BP 230's systolic, s/p Labetalol 20mg IV x1 in ER, repeat BP 190's-likely compounded by c/o abdominal pain and persistent nausea/vomiting. Blood pressure better, presently on nitro drip. CT Head w/ no acute findings. Started on lisinopril and metoprolol. 08/20 Patient's bp low today, bp meds held in am, ordered 500 ml IV bolus, bp improving. Continue to monitor vital signs. 08/21 BP very uncontrolled - restarted on nitroglycerin drip. I will resume home antihypertensive medications and increase metoprolol dose to 50 mg by mouth every 12 hours. I will also add hydralazine 10 mg IV push every 30 minutes as needed for systolic blood pressure more than 160 and will start Doxazosin at bedtime. Titrate Nitro glycerin drip to off. 08/22 patient's blood pressure better this a.m, patient's nitroglycerin discontinued by cardiology. However patient with increased epigastric pain and now with worsening blood pressure up to systolic blood pressure of 200 as per RN. I will give an extra dose of 2 mg of Zosyn by mouth once and will also give a dose of IV Dilaudid to control pain which could be contributing to the uncontrolled blood pressure. 08/23 BP controlled 08/24 BP 159/87 Colitis- Likely acute gastroenteritis, Patient states had diarrhea prior to admission along with nausea and vomiting. only started this morning.CTA Aorta w / mild colitis, images reviewed by me, in light of persistent symptoms and elevated neutrophil count Patient was started on IV Ciprofloxacin and IV Flagyl. IVF for hydration. Full liquid diet. 08/20 Patient's abdominal pain improving. No further diarrhea, nausea/vomiting. Continue IV antibiotics. Will advance diet to regular diet. 08/21 patient is tolerating regular diet. Continue IV Cipro Floxin and IV Flagyl. 08/22 Abdominal pain much improved - Switch IV antibiotics to Oral. 08/23 Abdominal pain resolved, passing gas, small BM this AM, continue antibiotics 08/24 abdominal pain minimal, scheduled for EGD this morning Chest Pain: Likely secondary to GI etiology from persistent vomiting. CXR w/ no acute findings, possible mild infiltrate, CTA Aorta negative for aneurysm or dissection. Initial trop 0.04, EKG w/ no acute changes. Monitor, place on telemetry, check serial enzymes, pain control. Follow-up next troponin. Elevated troponin: Likely secondary to hypertensive crisis. Cardiology consulted. Appreciate recommendations. Given chest pain however cardiology recommends a stress test. will follow up. 08/21 BP too elevated for any procedures today. 08/22 For nuclear stress test today if bp acceptable. 08/23 stress test normal Non-Compliance: Known h/o HTN, not on antihypertensives, non-compliant w/ meds and follow up. Pt counselled. Substance Abuse: h/o substance abuse, currently on Methadone. Tobacco Abuse: Counselled. Ativan/NicoDerm prn if needed. Hypokalemia: K 3.2. Replace orally and monitor. 08/23 3.0 continue to replace orally 08/24 resolved Leukocytosis: Due to colitis. WBC trending down, down to 10.2 K. Continue to monitor CBC with diff. 08/23 trending down to 8.8 Epigastric pain/nausea: Suspect PUD vs gastritis. GI following. Will need EGD after cleared by cardiology. Pain control w Iv dilaudid. Continue Protonix drip , add Carafate and prn Maalox. Pain improving. DVT Prophylaxis: SCD/Teds. Discharge Planning Continue to monitor in the medical floor. Elmer Villanueva August 24, 2016 09:10
[2016-08-24] MEDS ORDERED: ATROPINE SULFATE 1 MG/10 ML SYRINGE ONE (09:11)
[2016-08-24] MEDS ORDERED: EPINEPHrine HCL (1:10,000) 1 MG/10 ML SYRINGE ONE (09:11)
[2016-08-24] MEDS ORDERED: LACTATED RINGER'S 1,000 ML BAG IV ONE (09:30)
--- NOTE | 2016-08-24 09:55 | PD.PROCEDR ---
GI Procedure REFERRING PHYSICIAN Perry PROCEDURE PERFORMED EGD with biopsy INDICATION FOR PROCEDURE Nausea epigastric tenderness PROCEDURE: The procedure, risks and benefits were discussed with Ms. Nicholas and informed consent was obtained. Anesthesia sedated her with Diprivan. She was placed in the left lateral decubitus position. EGD: The Pentax videoscope was introduced through the oropharynx and advanced to the second portion of the duodenum under direct visualization. Retroflexion was performed in the stomach. FINDINGS: Esophagus this was normal Stomach there was antral streaky erythema no ulcerations or erosions antral biopsies were taken for further evaluation the rest of the stomach was unremarkable Duodenum this was normal ESTIMATED BLOOD LOSS: None SPECIMENS REMOVED: Antral biopsies COMPLICATIONS: None IMPRESSION: Mild antral gastritis PLAN: Await biopsy Switch to oral Protonix Okay for discharge from a GI standpoint Juan Encarnacion MD August 24, 2016 09:55
[2016-08-24] MEDS ORDERED: PROPOFOL 200 MG/20 ML AMP IV ONE (10:16)
[2016-08-24] MEDS ORDERED: ASPI81CH CHEW (13:33)
[2016-08-24] MEDS ORDERED: METR-1 PO (13:33)
[2016-08-24] MEDS ORDERED: LISI-515 PO (13:33)
[2016-08-24] MEDS ORDERED: SUCR1TAB PO (13:33)
[2016-08-24] MEDS ORDERED: METO25TA3 PO (13:33)
[2016-08-24] MEDS ORDERED: CIPR500T2 PO (13:33)
[2016-08-24] MEDS ORDERED: CARD2TAB PO (13:33)
[2016-08-24] MEDS ORDERED: PROT40TA PO (13:33)
--- NOTE | 2016-08-24 13:33 | HHI.DCPOC ---
Discharge Care Plan Diagnosis: (1) Colitis (2) Non-compliance (3) Hypertensive urgency (4) Intractable nausea and vomiting (5) Substance abuse (6) Diarrhea (7) Leukocytosis (8) Tobacco abuse (9) Chest pain Goals to Promote Your Health * To prevent worsening of your condition and complications * To maintain your health at the optimal level Directions to Meet Your Goals Take your medications as prescribed Follow your dietary instruction Follow activity as directed Keep your appointments as scheduled Take your immunizations and boosters as scheduled If your symptoms worsen call your PCP, if no PCP go to Urgent Care Center or Emergency Room Smoking is Dangerous to Your Health. Avoid second hand smoke Call the 24-hour hour crisis hotline for domestic abuse at Willie Briceño MD August 24, 2016 13:33
--- NOTE | 2016-08-24 13:38 | HHI.DS ---
Discharge Summary Admission Date August 19, 2016 at 05:19 Discharge Date: August 24, 2016 Admitting Diagnosis hypertensive urgency (1) Hypertensive urgency ICD Code: I16.0 Diagnosis: Principal (2) Intractable nausea and vomiting ICD Code: R11.2 Diagnosis: Principal (3) Colitis ICD Code: K52.9 Diagnosis: Principal (4) Chest pain ICD Code: R07.9 Diagnosis: Principal (5) Non-compliance ICD Code: Z91.19 Diagnosis: Principal (6) Substance abuse ICD Code: F19.10 Diagnosis: Principal (7) Tobacco abuse ICD Code: Z72.0 Diagnosis: Principal (8) Diarrhea ICD Code: R19.7 Diagnosis: Principal (9) Leukocytosis ICD Code: D72.829 Diagnosis: Principal (10) Chronic gastritis ICD Code: K29.50 Diagnosis: Principal Procedures none Brief History - From Admission This is a 60-year-old female with a PMH of HTN, Noncompliance, h/o Substance Abuse and Tobacco Abuse who was brought here by EMS secondary to complaints of chest pain, abdominal pain, headache and nausea/vomiting started yesterday morning. Denies fever, chills or sick contacts. No c/o SOB. On arrival, BP 231/110, HR 92, O2 sat 98% on RA, Afebrile. S/p Labetalol 20mg IV in ER w/ repeat BP 196/96, HR 98. Given analgesics/antiemetics w/ some improvement in pain complaints. CBC essentially unremarkable. Chemistry unremarkable. Troponin 0.04. INR 0.9. CT Head normal. CXR with early or mild base pneumonia. CTA Aorta negative, mild mural thickening of colon suggestive of mild colitis. While in ER, BP remains 190's w/ persistent nausea/vomiting. Pt reports non-compliance w/ BP medications. CBC/BMP: 08/23/16 0440 08/24/16 0456 Significant Findings Laboratory Tests Test 08/22/16 08/22/16 08/23/16 05:09 15:54 04:40 Hemoglobin 11.1 GM/DL 11.4 GM/DL (11.6-15.3) (11.6-15.3) Mean Corpuscular Volume 72.5 FL 73.1 FL (80.0-100.0) (80.0-100.0) Mean Corpuscular Hemoglobin 22.7 PG 23.0 PG (27.0-34.0) (27.0-34.0) Mean Corpuscular Hemoglobin 31.4 % 31.4 % Concent (32.0-36.0) (32.0-36.0) Lymphocytes (%) (Auto) 46.7 % 46.1 % (9.0-44.0) (9.0-44.0) Monocytes (%) (Auto) 8.2 % (0.0-8.0) Activated Partial 81.4 SEC 42.7 SEC Thromboplast Time (24.3-30.1) (24.3-30.1) Potassium Level 3.2 MEQ/L 3.0 MEQ/L (3.5-5.1) (3.5-5.1) Chloride Level 108 MEQ/L (98-107) Estimat Glomerular Filtration 83 ML/MIN (>89) 83 ML/MIN (>89) Rate Total Protein 6.1 GM/DL (6.4-8.2) Albumin 3.0 GM/DL 3.0 GM/DL (3.4-5.0) (3.4-5.0) Imaging Last Impressions Myocardial Perfusion Scan [facility] [place] [facility] 08/22/16 0000 Signed Impressions: Service Date/Time: Monday, August 22, 2016 14:05 - CONCLUSION: 1. Unremarkable myocardial perfusion scan. RISK CATEGORY: Low (<1%% Annual Mortality Rate ) Krunal Cbaallero MD Aorta CTA 08/19/167 Signed Impressions: Service Date/Time: Friday, August 19, 2016 00:05 - CONCLUSION: 1. Negative CTA of the aorta, except for mild atherosclerotic disease. Specifically no aneurysm or dissection. Small hiatal hernia. 2. There is some mild mural thickening of the colon with minimal pericolonic fat stranding near the splenic flexure are most characteristic of a mild colitis. Henrry Ho MD Chest X-Ray 08/18/169 Signed Impressions: Service Date/Time: Thursday, August 18, 2016 22:36 - CONCLUSION: Early or mild left base pneumonia suspected. Sly Cage MD Head CT 08/18/16 0000 Signed Impressions: Service Date/Time: Friday, August 19, 2016 00:01 - CONCLUSION: Normal examination. Henrry Ho MD PE at Discharge GENERAL: Middle-aged black female in nad. HEENT: PERRLA, EOMI. No scleral icterus or conjunctival pallor. No lid lag or facial droop. CARDIOVASCULAR: Regular rate and rhythm. No obvious murmurs to auscultation. No chest tenderness to palpation. RESPIRATORY: No obvious rhonchi or wheezing. Clear to auscultation. Breath sounds equal bilaterally. GASTROINTESTINAL: Abdomen soft, mild tenderness to palpation in epigastric region, nondistended. BS normal. MUSCULOSKELETAL: Extremities without clubbing, cyanosis, or edema. No obvious deformities. NEUROLOGICAL: Awake, alert and oriented x4. No focal neurologic deficits. Moving both upper and lower extremities spontaneously. Pt update on day of discharge Patient feels better. Has mild epigastric pain but no nausea. RLQ abdominal pain resolved. Denies fevers or chills. discussed case with leather case finisher to help patient to obtain patient's assistance. Hospital Course This is a 60-year-old female with previous history of substance abuse and noncompliance admitted for headache, abdominal pain and nausea, vomiting and diarrhea. Hypertensive emergency-h/o HTN, Non-compliant w/ medications. Headache likely secondary to hypertensive emergency On arrival, BP 230's systolic, s/p Labetalol 20mg IV x1 in ER, repeat BP 190's-likely compounded by c/o abdominal pain and persistent nausea/vomiting. Blood pressure better, presently on nitro drip. CT Head w/ no acute findings. Started on lisinopril and metoprolol. His blood pressure became low on 08/20 to which antihypertensive medications were held and patient was treated with 200 mL of IV bolus with improvement of the patient's blood pressure. The patient then became very controlled on 08/21 and micturition drip was restarted on the night of 08/20. Metoprolol dose was increased to 50 mg every 12 hours on 08/21 and hydralazine IV was added as needed for hypertension. Patient was started on doxazosin. Hypertensive emergency resolved by 08/22, however the patient required an extra dose of Cardura to control bp. 08/23 patient's blood pressure improved, the patient was started on lisinopril 20 mg by mouth every 12 hours. Continue to monitor vital signs. Colitis- Likely acute gastroenteritis, Patient states had diarrhea prior to admission along with nausea and vomiting. only started this morning.CTA Aorta w / mild colitis, images reviewed by me, in light of persistent symptoms and elevated neutrophil count Patient was started on IV Ciprofloxacin and IV Flagyl. IVF for hydration. Full liquid diet. IV antibiotics Dc'd on 08/22. Continue oral Ciprofloxacin and Flagyl. Chest Pain: Likely secondary to GI etiology from persistent vomiting. CXR w/ no acute findings, possible mild infiltrate, CTA Aorta negative for aneurysm or dissection. Initial trop 0.04, EKG w/ no acute changes. Monitor, place on telemetry, check serial enzymes, pain control. Follow-up next troponin. Elevated troponin: Likely secondary to hypertensive crisis. Cardiology consulted. Appreciate recommendations. Given chest pain however cardiology recommends a stress test. will follow up. Negative nuclear stress test. Non-Compliance: Known h/o HTN, not on antihypertensives, non-compliant w/ meds and follow up. Pt counselled. Substance Abuse: h/o substance abuse, currently on Methadone. Tobacco Abuse: Counselled. Ativan/NicoDerm prn if needed. Hypokalemia: K 3.0. Replaced orally and monitor. Leukocytosis: Due to colitis. Leukocytosis resolved after infection treated. CBC w diff monitored. Epigastric pain/nausea: Suspect PUD vs gastritis. GI following. Will need EGD after cleared by cardiology. Pain control w Iv dilaudid. Continue Protonix drip , add Carafate and prn Maalox. EGD colonoscopy found gastritis. Biopsy obtained, pathology showed active chronic gastritis. Patient discharged on a PPI and instructed to fu with GI. Pt Condition on Discharge: Stable Discharge Disposition: Discharge Home Discharge Time: > 30 minutes Discharge Instructions DIET: Follow Instructions for: Heart Healthy Diet Activities you can perform: Regular-No Restrictions Follow up Referrals: PCP Follow-up - 2 Weeks with Anabelle Arroyo MD New Medications: Aspirin (Aspirin) 81 Mg Chew 81 MG CHEW DAILY Blood Clot Prevention #31 Ref 0 TAB Sucralfate (Sucralfate) 1 Gm Tab 1 GM PO QID on empty stomach Duodenal ulcer #120 Ref 0 TAB Ciprofloxacin (Ciprofloxacin) 500 Mg Tab 500 MG PO Q12H Infection #10 TAB Doxazosin (Cardura) 2 Mg Tab 2 MG PO DAILY Blood Pressure Management #31 TAB Lisinopril (Lisinopril) 20 Mg Tab 20 MG PO Q12HR Blood Pressure Management #62 TAB Metoprolol Tartrate (Metoprolol Tartrate) 25 Mg Tab 50 MG PO Q12H Blood Pressure Management #62 TAB Metronidazole (Flagyl) 500 Mg Tab 500 MG PO Q8HR Infection #15 TAB Pantoprazole (Protonix) 40 Mg Tab 40 MG PO DAILY gastritis #31 TAB Willie Briceño MD August 24, 2016 13:38
[2016-08-25] MEDS ORDERED: PANTOPRAZOLE SOD 40 MG DELAYED RELEASE TAB PO SCH (09:00)
== END 2016-08-24 17:21 | disposition home or self-care (01) | DRG 392 ==
LOC: NEPC 21:57 → NEDA 08-19 05:19 → HCIS 08-19 08:02
PROVIDERS: ADMIT Hospitalist; ATTEND Hospitalist
PROC: 0DB68ZX Excision of Stomach, Via Natural or Artificial Opening Endoscopic, Diagnostic (ICD-10-PCS; principal; 2016-08-24 09:30)
DX: K29.60 Other gastritis without bleeding (principal); I16.9 Hypertensive crisis, unspecified; F11.20 Opioid dependence, uncomplicated; F17.210 Nicotine dependence, cigarettes, uncomplicated; D50.9 Iron deficiency anemia, unspecified; E87.6 Hypokalemia; I44.0 Atrioventricular block, first degree; I10 Essential (primary) hypertension; K52.9 Noninfective gastroenteritis and colitis, unspecified; K59.09 Other constipation; Z91.19 Patient's noncompliance with other medical treatment and regimen
CPT/HCPCS: 70450; 71010; 71275; 74174; 78452; 80048; 80053; 82550; 83540; 83550; 83690; 83735; 84100; 84484; 85025; 85027; 85610; 85730; 88305; 88312; 93005; 93017; 96374; 96375; A9502; C9113; J0171; J0360; J0461; J0744; J0780; J1170; J1644; J2060; J2270; J2405; J2785; J7030; J7040; J7070; J7120; Q9967

== ENCOUNTER 2016-08-26 16:22 | Emergency (ER) | payer SELFPAY ==
[~2016-08-26] VITALS: Ht 12.7 cm; Wt 60.0 kg
[~2016-08-26 16:22] MED LIST changes: +ASPI81CH CHEW; +CARD2TAB PO; +CIPR500T2 PO; +LISI-515 PO; -METH40TA9 PO; +METO25TA3 PO; +METR-1 PO; -PROM1SUP12 PR; +PROT40TA PO; +SUCR1TAB PO
[2016-08-26 16:30] VITALS: BP 133/80; PULSE 84; RESP 15; TEMP 98.2; O2SAT 99
[2016-08-26] MEDS ORDERED: KETOROLAC TROMETHAMINE 30 MG/ML (IVP) VIAL IV PUSH ONE (16:45)
[2016-08-26 17:09] LABS: AUTOMATED NEUTROPHIL # 4.9 TH/MM3 (1.8-7.7); BASOPHIL # 0.1 TH/MM3 (0-0.2); BASOPHIL % 1.1 % (0.0-2.0); EOSINOPHIL % 0.4 % (0.0-4.0); HEMATOCRIT 31.8 % (35.0-46.0); LYMPH % 43.9 % (9.0-44.0); LYMPHOCYTE # 4.6 TH/MM3 (1.0-4.8); MEAN CELL VOLUME 73.9 FL (80.0-100.0); MEAN CORPUSCULAR HEMOGLOBIN 23.1 PG (27.0-34.0); MEAN CORPUSCULAR HGB CONC 31.2 % (32.0-36.0); MONO % 8.1 % (0.0-8.0); NEUT % 46.5 % (16.0-70.0); PLATELET COUNT 269 TH/MM3 (150-450); RED CELL DISTRIBUTION WIDTH 16.1 % (11.6-17.2); WHITE BLOOD COUNT 10.5 TH/MM3 (4.0-11.0)
[2016-08-26 17:21] LABS: APTT (PATIENT) 26.8 SEC (24.3-30.1); PROTHROMBIN TIME - PATIENT 11.1 SEC (9.8-11.6)
[2016-08-26 17:22] LABS: ANION GAP 7 MEQ/L (5-15); AST (GOT) 32 U/L (15-37); BICARBONATE 28.1 MEQ/L (21.0-32.0); BLOOD UREA NITROGEN 11 MG/DL (7-18); CHLORIDE 107 MEQ/L (98-107); GLOMERULAR FILTRATION RATE 90 ML/MIN (>89); POTASSIUM 3.5 MEQ/L (3.5-5.1); SODIUM (NA) 142 MEQ/L (136-145)
[2016-08-26 17:24] LABS: HEMO FLAGS DIFF FINAL
[2016-08-26 17:25] LABS: ALKALINE PHOSPHATASE 66 U/L (45-117); ALT (GPT) 72 U/L (10-53); TOTAL BILIRUBIN ADULT 0.2 MG/DL (0.2-1.0)
--- NOTE | 2016-08-26 17:43 | PD ---
HPI Chief Complaint: Edema Time Seen by Provider: 16:30 Travel History International Travel<30 days: No Contact w/Intl Traveler<30days: No Traveled to known affect area: No History of Present Illness HPI Patient is a 60 year old female who comes in complaining of pain and swelling to her left hand where she had an IV. She was discharged from the hospital and the swelling started the next day. She denies any fever or chills. She denies any injuries to the hand. She is currently on Cipro and Flagyl for colitis. She denies any chest pain or SOB. PFSH Past Medical History Blood Disorders: No Anxiety: Yes Depression: Yes Cancer: No Cardiovascular Problems: Yes (HTN) Chemotherapy: No Chest Pain: Yes Cerebrovascular Accident: No Diminished Hearing: No Endocrine: No Gastrointestinal Disorders: Yes (constipation frequently) Genitourinary: No Hypertension: Yes Immune Disorder: No Implanted Vascular Access Dvce: No Musculoskeletal: No Neurologic: No Psychiatric: No Reproductive: No Respiratory: Yes Immunizations Current: Yes Radiation Therapy: No Seizures: No ?: Not Menopausal: Yes Past Surgical History AICD: No Arteriovenous Shunt: No Insulin Pump: No Joint Replacement: No Pacemaker: No Other Surgery: No Social History Alcohol Use: Yes (SOCIAL USE) Tobacco Use: Yes (1 PPD) Substance Use: No Allergies-Medications (Allergen,Severity, Reaction): Coded Allergies: No Known Allergies (Verified , 08/18/16) Reported Meds & Prescriptions Reported Meds & Active Scripts Active Sucralfate 1 Gm Tab 1 Gm PO QID on empty stomach Protonix (Pantoprazole Sodium) 40 Mg Tab 40 Mg PO DAILY Flagyl (Metronidazole) 500 Mg Tab 500 Mg PO Q8HR Metoprolol Tartrate 25 Mg Tab 50 Mg PO Q12H Lisinopril 20 Mg Tab 20 Mg PO Q12HR Cardura (Doxazosin Mesylate) 2 Mg Tab 2 Mg PO DAILY Ciprofloxacin (Ciprofloxacin HCl) 500 Mg Tab 500 Mg PO Q12H Aspirin 81 Mg Chew 81 Mg CHEW DAILY Review of Systems Except as stated in HPI: all other systems reviewed are Neg General / Constitutional: No: Fever, Chills Eyes: No: Blurred Vision HENT: No: Headaches Cardiovascular: No: Chest Pain or Discomfort Respiratory: No: Shortness of Breath Gastrointestinal: No: Nausea, Vomiting Musculoskeletal: Positive: Edema, Pain Skin: Positive Lesions Neurologic: No: Weakness, Dizziness Physical Exam Narrative GENERAL: Awake and alert, in no acute distress. SKIN: Focused skin assessment warm/dry. Erythema and warmth over old IV site to the dorsum of the left hand. HEAD: Atraumatic. Normocephalic. EYES: Pupils equal and round. No scleral icterus. ENT: Mucous membranes pink and moist. NECK: Trachea midline. No JVD. CARDIOVASCULAR: Regular rate and rhythm. No murmur appreciated. RESPIRATORY: No accessory muscle use. Clear to auscultation. Breath sounds equal bilaterally. MUSCULOSKELETAL: No obvious deformities. No clubbing. No cyanosis. Swelling to the left hand. Radial pulse intact NEUROLOGICAL: Awake and alert. No obvious cranial nerve deficits. Motor grossly within normal limits. Normal speech. PSYCHIATRIC: Appropriate mood and affect; insight and judgment normal. Data Data Last Documented VS Vital Signs Date Time Temp Pulse Resp B/P Pulse Ox O2 Delivery O2 Flow Rate FiO2 08/26/16 17:08 18 99 Room Air 08/26/16 16:30 98.2 84 133/80 Orders Complete Blood Count With Diff (08/26/16 16:45) Comprehensive Metabolic Panel (08/26/16 16:45) Us Arm Venous Doppler (08/26/16 ) Act Partial Throm Time (Ptt) (08/26/16 16:45) Prothrombin Time / Inr (Pt) (08/26/16 16:45) Iv Access Insert/Monitor (08/26/16 16:45) Ketorolac Inj (Toradol Inj) (08/26/16 16:45) Labs Laboratory Tests Test 08/26/16 16:57 White Blood Count 10.5 TH/MM3 Red Blood Count 4.30 MIL/MM3 Hemoglobin 9.9 GM/DL Hematocrit 31.8 % Mean Corpuscular Volume 73.9 FL Mean Corpuscular Hemoglobin 23.1 PG Mean Corpuscular Hemoglobin 31.2 % Concent Red Cell Distribution Width 16.1 % Platelet Count 269 TH/MM3 Mean Platelet Volume 7.8 FL Neutrophils (%) (Auto) 46.5 % Lymphocytes (%) (Auto) 43.9 % Monocytes (%) (Auto) 8.1 % Eosinophils (%) (Auto) 0.4 % Basophils (%) (Auto) 1.1 % Neutrophils # (Auto) 4.9 TH/MM3 Lymphocytes # (Auto) 4.6 TH/MM3 Monocytes # (Auto) 0.8 TH/MM3 Eosinophils # (Auto) 0.0 TH/MM3 Basophils # (Auto) 0.1 TH/MM3 CBC Comment DIFF FINAL Differential Comment Prothrombin Time 11.1 SEC Prothromb Time International 1.0 RATIO Ratio Activated Partial 26.8 SEC Thromboplast Time Sodium Level 142 MEQ/L Potassium Level 3.5 MEQ/L Chloride Level 107 MEQ/L Carbon Dioxide Level 28.1 MEQ/L Anion Gap 7 MEQ/L Blood Urea Nitrogen 11 MG/DL Creatinine 0.79 MG/DL Estimat Glomerular Filtration 90 ML/MIN Rate Random Glucose 92 MG/DL Calcium Level 8.2 MG/DL Total Bilirubin 0.2 MG/DL Aspartate Amino Transf 32 U/L (AST/SGOT) Alanine Aminotransferase 72 U/L (ALT/SGPT) Alkaline Phosphatase 66 U/L Total Protein 5.9 GM/DL Albumin 3.0 GM/DL MDM Medical Decision Making Medical Screen Exam Complete: Yes Emergency Medical Condition: Yes Medical Record Reviewed: Yes Differential Diagnosis Thrombophlebitis versus cellulitis versus superlative thrombophlebitis versus phlebitis Narrative Course Patient is a 60-year-old female comes in complaining of pain and swelling to her left hand where she had an IV. Exam shows erythema and warmth over the IV site with swelling to the left hand. IV established, labs sent. Labs show no acute abnormalities. Patient given Toradol for pain. Ultrasound performed of the left arm shows no evidence of clot. Patient discharged with prescription for Bactrim for better skin coverage. Given prescription for pain medicine. Advised to use compression, apply ice and take Ibuprofen. Advised to follow up with her PCP. advised to return to the ED as needed for any worsening symptoms. Diagnosis Primary Impression: Phlebitis Patient Instructions: Cellulitis (ED), General Instructions Additional Instructions: Take all of your antibiotics. Apply compression and ice. Take Ibuprofen. Follow up with your doctor. Return to the ED as needed for any worsening symptoms. Scripts Hydrocodone-Acetaminophen (Wendel)5-325 mg Tab1 Tab PO Q6H PRN (PAIN) #7 TAB Ref 0 Prov:Isabella Overton MD 08/26/16 Sulfamethoxazole-Trimethoprim (Bactrim DS)800-160 Mg Tab1 Tab PO BID #14 TAB Ref 0 Prov:Isabella Overton MD 08/26/16 Disposition: 01 DISCHARGE HOME Condition: Stable Isabella Overton MD August 26, 2016 17:43
--- NOTE | 2016-08-26 17:50 | RADRPT ---
EXAM DATE/TIME: 08/26/2016 16:59 [facility] COMPARISON: No previous studies available for comparison. INDICATIONS : Left hand swelling. MEDICAL HISTORY : Hypertension. Dyspenea. Depression. Anxiety. SURGICAL HISTORY : None. ENCOUNTER: Initial ACUITY: 2 day PAIN SCORE: 9/10 LOCATION: Left arm. FINDINGS: There is spontaneous flow documented in the brachial, basilic, cephalic, axillary, and subclavian vei ns. The vessels are compressible and augmentation response is documented. No filling defects are se en. The flow is phasic with respiration. Direction of flow in the jugular vein is caudal. CONCLUSION: Negative for DVT.. Shadi Padron MD FACR on August 26, 2016 at 17:47 Board Certified Radiologist. This report was verified electronically.
[2016-08-26] MEDS ORDERED: NORC5TAB PO (18:05)
[2016-08-26] MEDS ORDERED: BACT800T5 PO (18:05)
== END 2016-08-26 18:37 | disposition home or self-care (01) ==
LOC: NEPD 16:22
DX: I80.9 Phlebitis and thrombophlebitis of unspecified site (principal); I10 Essential (primary) hypertension; F17.210 Nicotine dependence, cigarettes, uncomplicated
CPT/HCPCS: 80053; 85025; 85610; 85730; 93971; 96374; 99285; J1885